=== PATIENT | male | born 1935 | race Caucasian/White ===

== ENCOUNTER 2016-07-23 17:13 | Inpatient (IN) | payer MEDICARE ==
[2016-07-23] MEDS ORDERED: NITROGLYCERIN OINT 1 INCH/GM PACKET TOPICAL STA (17:46)
[2016-07-23] MEDS ORDERED: ASPIRIN 81 MG CHEW PO STA (17:46)
--- NOTE | 2016-07-23 17:51 | ED ---
General Adult HPI - General Chief complaint: Chest Pain Stated complaint: Chest Pain Time Seen by Provider: 07/23/16 17:34 Source: patient, RN notes reviewed Mode of arrival: wheelchair Limitations: no limitations - History of Present Illness Initial comments: Patient is a pleasant 80-year-old male presenting to the emergency department complaining of chest discomfort. Onset of symptoms was a couple weeks ago. Patient had discomfort for a day or 2 then resolved. Patient had return of symptoms around 2 days ago that lasted again for a day or 2 then resolved. Patient states chest discomfort started again today. Patient states it is difficult to describe the discomfort. There is some associated dyspnea. No nausea or diaphoresis. No history of similar symptoms previously. Discomfort is mild at this time, lids 2/10. Discomfort is in the sternal region. - Related Data Home Medications Medication Instructions Recorded Confirmed Aspirin 81 mg PO QAM 07/16/14 07/23/16 Gemfibrozil [Lopid] 600 mg PO AC-BID 07/16/14 07/23/16 Lisinopril [Zestril] 5 mg PO HS 07/16/14 07/23/16 Terazosin [Hytrin] 5 mg PO HS 07/16/14 07/23/16 metFORMIN HCL [Glucophage] 500 mg PO BID 07/16/14 07/23/16 Exenatide Microspheres [Bydureon 2 mg SQ VIERA 05/20/16 07/23/16 Pen] Cranberry W/ Vitamin D3 1 tab PO DAILY 07/23/16 07/23/16 Metoprolol Succinate (ER) [Toprol 50 mg PO QAM 07/23/16 07/23/16 Xl] Multivit-Min/FA/Lycopen/Lutein 1 tab PO QAM 07/23/16 07/23/16 [Centrum Silver Men Tablet] Allergies Allergy/AdvReac Type Severity Reaction Status Date / Time No Known Allergies Allergy Verified 07/23/16 17:58 Review of Systems ROS Statement: Those systems with pertinent positive or pertinent negative responses have been documented in the HPI. ROS Other: All systems not noted in ROS Statement are negative. Constitutional: Denies: fever Eyes: Denies: eye pain ENT: Denies: ear pain Respiratory: Denies: cough Cardiovascular: Reports: chest pain Endocrine: Denies: fatigue Gastrointestinal: Denies: abdominal pain Genitourinary: Denies: urgency Musculoskeletal: Denies: back pain Skin: Denies: rash Neurological: Denies: weakness Past Medical History Past Medical History: CVA/TIA, Diabetes Mellitus, Hyperlipidemia, Hypertension, Osteoarthritis (OA), Prostate Disorder Additional Past Medical History / Comment(s): gout, arthritis, ENLARGED PROSTATE , TIA 2009,SINUS PROBLEMS, NEUROPATHY AND LT FOOT WEAKNESS /wears brace.bilat. foot wounds History of Any Multi-Drug Resistant Organisms: None Reported Past Surgical History: Joint Replacement Additional Past Surgical History / Comment(s): colonoscopy, x2 knee replacements on rt knee Past Anesthesia/Blood Transfusion Reactions: No Reported Reaction Past Psychological History: No Psychological Hx Reported Additional Psychological History / Comment(s): lives alone in own home. is independant with his care.gets no outside help. Smoking Status: Former smoker Past Alcohol Use History: None Reported Additional Past Alcohol Use History / Comment(s): SMOKED 1 PPD PER 4 YEARS, QUIT IN 1958 Past Drug Use History: None Reported - Past Family History Father Family Medical History: Cancer Additional Family Medical History / Comment(s): LUNG CANCER Mother Family Medical History: Hypertension, Osteoarthritis (OA) General Exam Limitations: no limitations General appearance: alert, in no apparent distress, obese Head exam: Present: atraumatic Eye exam: Present: normal appearance, PERRL ENT exam: Present: normal oropharynx Neck exam: Present: normal inspection Respiratory exam: Present: normal lung sounds bilaterally. Absent: chest wall tenderness Cardiovascular Exam: Present: regular rate, normal rhythm GI/Abdominal exam: Present: soft. Absent: tenderness Extremities exam: Present: pedal edema. Absent: calf tenderness Neurological exam: Present: alert Psychiatric exam: Present: normal affect, normal mood Skin exam: Present: dry Course Vital Signs 07/23/16 07/23/16 17:18 18:34 Temperature 99.5 F 98.0 F Pulse Rate 91 88 Respiratory 20 16 Rate Blood Pressure 132/61 119/58 O2 Sat by Pulse 95 97 Oximetry EKG Findings - EKG Comments: EKG Findings:: Sinus rhythm at 94. Occasional PVCs. MT 192. QRS 88. QT 360. QTC 460. Normal axis. Normal QRS. Normal ST-T. Medical Decision Making - Medical Decision Making Patient reevaluated and resting comfortably in bed. Patient and family updated on results and plan. Case was discussed in detail with Dr. precrash, who will admit for Dr. Cerrato. - Lab Data Result diagrams: 07/23/16 17:37 07/23/16 17:37 Lab Results 07/23/16 07/23/16 07/23/16 Range/Units 17:37 17:37 17:37 WBC 13.8 H (3.8-10.6) k/uL RBC 4.36 (4.30-5.90) m/uL Hgb 12.9 L (13.0-17.5) gm/dL Hct 38.4 L (39.0-53.0) % MCV 88.0 (80.0-100.0) fL MCH 29.6 (25.0-35.0) pg MCHC 33.7 (31.0-37.0) g/dL RDW 15.2 (11.5-15.5) % Plt Count 329 (150-450) k/uL Neutrophils % 77 % Lymphocytes % 14 % Monocytes % 5 % Eosinophils % 1 % Basophils % 1 % Neutrophils # 10.7 H (1.3-7.7) k/uL Lymphocytes # 1.9 (1.0-4.8) k/uL Monocytes # 0.7 (0-1.0) k/uL Eosinophils # 0.2 (0-0.7) k/uL Basophils # 0.1 (0-0.2) k/uL PT (9.0-12.0) sec INR (<1.1) APTT (22.0-30.0) sec Sodium 140 (137-145) mmol/L Potassium 4.8 (3.5-5.1) mmol/L Chloride 105 (98-107) mmol/L Carbon Dioxide 22 (22-30) mmol/L Anion Gap 13 mmol/L BUN 33 H (9-20) mg/dL Creatinine 0.89 (0.66-1.25) mg/dL Est GFR (MDRD) Af Amer >60 (>60 ml/min/1.73 sqM) Est GFR (MDRD) Non-Af >60 (>60 ml/min/1.73 sqM) Glucose 117 H (74-99) mg/dL Calcium 9.7 (8.4-10.2) mg/dL Magnesium 1.7 (1.6-2.3) mg/dL Total Bilirubin 1.3 (0.2-1.3) mg/dL AST 13 L (17-59) U/L ALT 21 (21-72) U/L Alkaline Phosphatase 89 (38-126) U/L Total Creatine Kinase 37 L (55-170) U/L CK-MB (CK-2) 0.7 (0.0-2.4) ng/mL CK-MB (CK-2) Rel Index 1.9 Troponin I <0.012 (0.000-0.034) ng/mL Total Protein 7.2 (6.3-8.2) g/dL Albumin 4.2 (3.5-5.0) g/dL 07/23/16 Range/Units 17:37 WBC (3.8-10.6) k/uL RBC (4.30-5.90) m/uL Hgb (13.0-17.5) gm/dL Hct (39.0-53.0) % MCV (80.0-100.0) fL MCH (25.0-35.0) pg MCHC (31.0-37.0) g/dL RDW (11.5-15.5) % Plt Count (150-450) k/uL Neutrophils % % Lymphocytes % % Monocytes % % Eosinophils % % Basophils % % Neutrophils # (1.3-7.7) k/uL Lymphocytes # (1.0-4.8) k/uL Monocytes # (0-1.0) k/uL Eosinophils # (0-0.7) k/uL Basophils # (0-0.2) k/uL PT 10.7 (9.0-12.0) sec INR 1.1 (<1.1) APTT 26.5 (22.0-30.0) sec Sodium (137-145) mmol/L Potassium (3.5-5.1) mmol/L Chloride (98-107) mmol/L Carbon Dioxide (22-30) mmol/L Anion Gap mmol/L BUN (9-20) mg/dL Creatinine (0.66-1.25) mg/dL Est GFR (MDRD) Af Amer (>60 ml/min/1.73 sqM) Est GFR (MDRD) Non-Af (>60 ml/min/1.73 sqM) Glucose (74-99) mg/dL Calcium (8.4-10.2) mg/dL Magnesium (1.6-2.3) mg/dL Total Bilirubin (0.2-1.3) mg/dL AST (17-59) U/L ALT (21-72) U/L Alkaline Phosphatase (38-126) U/L Total Creatine Kinase (55-170) U/L CK-MB (CK-2) (0.0-2.4) ng/mL CK-MB (CK-2) Rel Index Troponin I (0.000-0.034) ng/mL Total Protein (6.3-8.2) g/dL Albumin (3.5-5.0) g/dL - Radiology Data Radiology results: image reviewed (Chest x-ray shows cardiomegaly) Critical Care Time Critical Care Time: Yes Total Critical Care Time: 31 Disposition Clinical Impression: Unstable angina pectoris Disposition: ADMITTED IP TO THIS HOSP Referrals: Denis Cerrato MD [Primary Care Provider] - 1-2 days Time of Disposition: 18:51
[2016-07-23 18:05] LABS: Basophils # (A) 0.1 k/uL (0-0.2); Basophils % (A) 1 %; CH 30.2; CHCM 34.5; Eosinophils # (A) 0.2 k/uL (0-0.7); Eosinophils % (A) 1 %; HCT 38.4 % (39.0-53.0); HDW 3.39; HGB 12.9 gm/dL (13.0-17.5); Luc # (Auto) 0.26; Luc % (Auto) 2; Lymphocytes # (A) 1.9 k/uL (1.0-4.8); Lymphocytes % (A) 14 %; MCH 29.6 pg (25.0-35.0); MCHC 33.7 g/dL (31.0-37.0); Mean Platelet Volume 7.1; Monocytes # (A) 0.7 k/uL (0-1.0); Monocytes % (A) 5 %; Neutrophils # (A) 10.7 k/uL (1.3-7.7); Neutrophils % (A) 77 %; RBC 4.36 m/uL (4.30-5.90); RDW 15.2 % (11.5-15.5); WBC 13.8 k/uL (3.8-10.6); WBC (Perox) 12.89
--- NOTE | 2016-07-23 18:13 | XR ---
EXAMINATION TYPE: XR chest 2V DATE OF EXAM: 07/23/2016 COMPARISON: 12/14/2014 HISTORY: Chest pain TECHNIQUE: Frontal and lateral views of the chest are obtained. FINDINGS: There is no heart failure nor confluent pneumonic infiltrate. Heart appears enlarged. Ther e are no hilar masses. There is no pleural effusion. There are chest leads. Bony thorax appears intac t. IMPRESSION: Cardiomegaly. Heart appears increased compared to old exam. No heart failure.
[2016-07-23 18:14] LABS: ALT 21 U/L (21-72); AST 13 U/L (17-59); Alkaline Phosphatase 89 U/L (38-126); Anion Gap 13 mmol/L; Blood Urea Nitrogen 33 mg/dL (9-20); Calcium 9.7 mg/dL (8.4-10.2); Carbon Dioxide 22 mmol/L (22-30); Chloride 105 mmol/L (98-107); Glucose 117 mg/dL (74-99); INR 1.1 (<1.1); Magnesium 1.7 mg/dL (1.6-2.3); Non-African American GFR(MDRD) >60 (>60 ml/min/1.73 sqM); Partial Thromboplastin Time 26.5 sec (22.0-30.0); Potassium 4.8 mmol/L (3.5-5.1); Prothrombin Time 10.7 sec (9.0-12.0); Sodium 140 mmol/L (137-145); Total Bilirubin 1.3 mg/dL (0.2-1.3); Total Protein 7.2 g/dL (6.3-8.2)
[2016-07-23 18:31] LABS: Creatine Kinase 37 U/L (55-170)
[2016-07-23 18:44] LABS: Creatine Kinase MB 0.7 ng/mL (0.0-2.4); Troponin I <0.012 ng/mL (0.000-0.034)
[2016-07-23] MEDS ORDERED: NITROGLYCERIN SL TABS 0.4 MG TAB SUBLINGUAL PRN (18:51)
[2016-07-23] MEDS ORDERED: HEPARIN SODIUM,PORCINE 5,000 UNIT/ML 1 ML VIAL IV ONE (18:51)
[2016-07-23] MEDS ORDERED: HEPARIN SODIUM,PORCINE 5,000 UNIT/ML 1 ML VIAL IV PRN (18:51)
[2016-07-23] MEDS ORDERED: Acetaminophen-Codeine 300-30mg TAB PO STA (18:53)
[2016-07-23] MEDS ORDERED: HEPARIN SODIUM,PORCINE/D5W PMX 25,000 UNIT in DEXTROSE/WATER 1 500ML.BAG IV SCH (19:00)
[2016-07-23 20:16] VITALS: BMI 39.0
[2016-07-23 21:37] LABS: Glucose,Whole Blood 160 mg/dL (75-99)
[2016-07-23] MEDS: LISINOPRIL 5 MG TAB PO SCH (23:26)
[2016-07-23] MEDS: TERAZOSIN 5 MG CAP PO SCH (23:26)
[2016-07-24 00:14] LABS: Appearance,Urine Turbid (Clear); Bilirubin,Urine Negative (Negative); Glucose,Urine (UA) Negative (Negative); Ketones,Urine Negative (Negative); Leukocyte Esterase,Urine Large (Negative); Mucus,Urine Moderate /hpf; Nitrite,Urine Negative (Negative); PH, Urine 5.5 (5.0-8.0); Particle Count 50070; Protein,Urine 2+ (Negative); RBC,Urine >182 /hpf (0-5); Specific Gravity,Urine 1.023 (1.001-1.035); Squamous Epithelial Cell,Urine 8 /hpf (0-4); UA Billing (MACRO vs. MICRO) MICRO; WBC,Urine >182 /hpf (0-5)
[2016-07-24] MEDS: NITROGLYCERIN OINT 1 INCH/GM PACKET TOPICAL SCH ×4 (00:35→19:11)
[2016-07-24 00:36] LABS: Basophils # (A) 0.1 k/uL (0-0.2); Basophils % (A) 1 %; CHCM 34.4; Eosinophils # (A) 0.1 k/uL (0-0.7); Eosinophils % (A) 1 %; HCT 36.3 % (39.0-53.0); HGB 12.3 gm/dL (13.0-17.5); Luc # (Auto) 0.28; Luc % (Auto) 2; Lymphocytes # (A) 1.6 k/uL (1.0-4.8); Lymphocytes % (A) 13 %; MCH 29.9 pg (25.0-35.0); MCV 87.8 fL (80.0-100.0); Mean Platelet Volume 6.7; Monocytes # (A) 0.8 k/uL (0-1.0); Monocytes % (A) 7 %; Neutrophils # (A) 9.2 k/uL (1.3-7.7); Neutrophils % (A) 76 %; Poikilocytosis Slight; RBC 4.13 m/uL (4.30-5.90); WBC 12.1 k/uL (3.8-10.6); WBC (Perox) 13.03
[2016-07-24 01:00] LABS: Creatine Kinase 26 U/L (55-170)
[2016-07-24 01:13] LABS: Creatine Kinase MB 0.7 ng/mL (0.0-2.4); Troponin I <0.012 ng/mL (0.000-0.034)
[2016-07-24 07:21] LABS: Glucose,Whole Blood 140 mg/dL (75-99)
[2016-07-24 07:34] LABS: Mean Platelet Volume 6.7
[2016-07-24 07:44] LABS: Cholesterol 83 mg/dL (<200); HDL Cholesterol 37 mg/dL (40-60); Triglycerides 142 mg/dL (<150)
[2016-07-24 07:48] LABS: Creatine Kinase 24 U/L (55-170)
[2016-07-24 08:01] LABS: Creatine Kinase MB 0.6 ng/mL (0.0-2.4); Troponin I <0.012 ng/mL (0.000-0.034)
[2016-07-24] MEDS ORDERED: ALPRAZolam 0.25 MG TAB PO PRN (08:26)
[2016-07-24] MEDS ORDERED: NITROGLYCERIN SL TABS 0.4 MG TAB SUBLINGUAL PRN ×2 (08:26→18:33)
[2016-07-24] MEDS ORDERED: ASPIRIN 325 MG TAB PO STA (08:26)
[2016-07-24] MEDS ORDERED: ATORVASTATIN 80 MG TAB PO STA (08:26)
[2016-07-24] MEDS ORDERED: SODIUM CHLORIDE 0.9% 1,000 ML in EMPTY BAG 1 BAG IV ONE (08:26)
[2016-07-24] MEDS ORDERED: ALPRAZolam 0.5 MG TAB PO PRN (08:26)
[2016-07-24] MEDS: METOPROLOL SUCCINATE (ER) 50 MG TAB.ER.24H PO SCH (08:45)
[2016-07-24] MEDS: GEMFIBROZIL 600 MG TAB PO SCH ×2 (08:45→19:10)
[2016-07-24] MEDS ORDERED: ASPIRIN 81 MG CHEW PO SCH (09:00)
[2016-07-24] MEDS ORDERED: metFORMIN 500 MG TAB PO SCH (09:00)
[2016-07-24] MEDS ORDERED: ASPIRIN 325 MG TAB PO SCH (09:00)
[2016-07-24] MEDS ORDERED: MIDAZOLAM 2 MG/2 ML VIAL ONE (09:10)
[2016-07-24] MEDS ORDERED: LIDOCAINE 2% INJ 20 MG/ML (20 ML MDV) ONE ×2 (09:10→17:10)
[2016-07-24] MEDS ORDERED: diphenhydrAMINE 50 MG/ML 1 ML VIAL ONE (09:10)
[2016-07-24] MEDS ORDERED: IV FLUID CONTINUATION 1,000 ML IV ONE (09:36)
[2016-07-24] MEDS: fentaNYL (PF) 50 MCG/ML 2 ML AMP IV ONE ×2 (09:42→10:20)
[2016-07-24] MEDS ORDERED: fentaNYL (PF) 50 MCG/ML 2 ML AMP ONE (09:42)
[2016-07-24] MEDS ORDERED: MIDAZOLAM 2 MG/2 ML VIAL IV ONE (09:42)
[2016-07-24] MEDS ORDERED: LIDOCAINE 2% INJ 20 MG/ML SQ ONE ×2 (09:45→17:59)
--- NOTE | 2016-07-24 09:48 | CONS ---
DATE OF CONSULTATION: CHIEF COMPLAINT: Chest pain. Ramesh is a 80-year-old gentleman with multiple coronary risk factors including hypertension, diabetes, dyslipidemia who presented to hospital complaining of chest pain. He describes it as intermittent episodes of Precordial chest pressure that sometimes come on at rest and sometimes related to exertion. There is no definite radiation to neck, arm or back. They are unassociated with diaphoresis. He is admitted to hospital with a diagnosis of unstable angina and since admission, has been doing well. EKG shows sinus rhythm with frequent PVCs and nonspecific ST-T wave changes. Cardiac enzymes have been negative. Hemoglobin is 12.3 and platelet count is normal. Past medical history is significant for hypertension, diabetes, dyslipidemia. Current medications include Hytrin, aspirin, Glucophage 500 b.i.d., Toprol-XL 50 mg q. daily, Zestril 5 q. daily, Lopid. ALLERGIES: There are no known drug allergies. Family history is negative for premature coronary artery disease. Social history is negative for smoking, EtOH use or drug abuse. REVIEW OF SYSTEMS: HEENT is unremarkable. CARDIAC: As described above. RESPIRATORY: Negative. GI: Negative. GENITOURINARY: Negative. ALLERGY/IMMUNOLOGY: Negative. MUSCULOSKELETAL: Significant for arthritis. PSYCHOSOCIAL: Negative. ENDOCRINE: Negative. DERMATOLOGY: Negative. CONSTITUTIONAL: Negative. ONCOLOGICAL: Negative. The rest of the system review is not relevant. On exam, comfortable at rest. Vital signs are stable. There is no jugular venous distention. Chest exam reveals good air entry bilaterally. Heart exam reveals first and second heart sounds. No gallop. No murmur, no rub. Abdomen is soft, nontender. Exam of the extremities did not reveal edema. Peripheral pulses are felt. Labs show a hemoglobin of 12.3, platelet count is normal. Tropes are negative. ASSESSMENT: Unstable angina. PLAN: Given the patient's symptomatology, risk factors, I advised him to undergo cardiac catheterization for further evaluation. He had been explained of risks, benefits, and alternatives, understood and accepted.
[2016-07-24] MEDS ORDERED: PRASUGREL 10 MG TAB ONE (10:13)
[2016-07-24] MEDS ORDERED: PRASUGREL 10 MG TAB PO ONE (10:15)
[2016-07-24] MEDS ORDERED: IOHEXOL 350 MG/ML 125ML BOTTLE INJ ONE ×2 (10:16→18:24)
--- NOTE | 2016-07-24 12:11 | ECHOF ---
Referral Reason:chest pain MEASUREMENTS -------- HEIGHT: 180.3 cm WEIGHT: 126.6 kg BP: 105/55 RVIDd: 3.6 cm (< 3.3) IVSd: 1.3 cm (0.6 - 1.1) LVIDd: 5.2 cm (3.9 - 5.3) LVPWd: 1.4 cm (0.6 - 1.1) IVSs: 1.5 cm LVIDs: 3.6 cm LVPWs: 1.8 cm LA Diam: 3.9 cm (2.7 - 3.8) LAESV Index (A-L): 31.46 ml/m Ao Diam: 3.5 cm (2.0 - 3.7) AV Cusp: 1.9 cm (1.5 - 2.6) MV EXCURSION: 16.399 mm (> 18.000) MV EF SLOPE: 30 mm/s (70 - 150) EPSS: 0.9 cm MV E Robert: 0.65 m/s MV DecT: 238 ms MV A Robert: 1.01 m/s MV E/A Ratio: 0.65 AV maxP.01 mmHg AV meanP.34 mmHg FINDINGS -------- Sinus rhythm. This was a technically difficult study with suboptimal views. The left ventricular size is normal. There is moderate concentric left ventricular hypertrophy. Overall left ventricular systolic function is normal with, an EF between 55 - 60 %. The right ventricle is mildly enlarged. LA is midly dilated 29-33ml/m2. The right atrium is normal in size. 1.5mg of Definity was utilized for enhancement of images There is moderate to severe aortic valve sclerosis. There is moderate aortic stenosis present. Peak/mean gradient across the Aortic Valve is 55.01mmHg / 32.34mmHg. Mild mitral annular calcification present. The tricuspid valve was not well visualized. The pulmonic valve was not well visualized. The aortic root size is normal. IVC Not well visulized. There is a trivial pericardial effusion present. CONCLUSIONS -------- 1. Sinus rhythm. 2. There is moderate to severe aortic valve sclerosis. 3. There is moderate aortic stenosis present. 4. Peak/mean gradient across the Aortic Valve is 55.01mmHg / 32.34mmHg. 5. Mild mitral annular calcification present. 6. The tricuspid valve was not well visualized. 7. The pulmonic valve was not well visualized. 8. The aortic root size is normal. 9. IVC Not well visulized. 10. There is a trivial pericardial effusion present. 11. This was a technically difficult study with suboptimal views. 12. The left ventricular size is normal. 13. There is moderate concentric left ventricular hypertrophy. 14. Overall left ventricular systolic function is normal with, an EF between 55 - 60 %. 15. The right ventricle is mildly enlarged. 16. LA is midly dilated 29-33ml/m2. 17. The right atrium is normal in size. 18. 1.5mg of Definity was utilized for enhancement of images SYSTEM SOFTWARE PROGRAMMER: Patsy Long RDCS
--- NOTE | 2016-07-24 12:28 | HP ---
DATE OF ADMISSION: 07/23/2016 PRESENTING COMPLAINT: Chest pressure. HISTORY OF PRESENTING COMPLAINT: This is a very pleasant 80-year-old patient of Dr. Cerrato. Chronic stable medical conditions include hypertension, hyperlipidemia, BPH, gout, diabetes, chronic low back pain, also got a chronic left foot drop. Patient is hard of hearing. Patient presented with chest pain on and off for 3 to 4 hours associated with some shortness of breath central, no dizziness, no sweating. Patient also noted 2 episodes in the last 2 weeks both the times with some activity. Hence, the patient admitted with unstable angina. REVIEW OF SYSTEMS: CONSTITUTIONAL: None. HEENT: Decreased hearing. RESPIRATORY: As above. CARDIOVASCULAR: As above. GASTROINTESTINAL: None. GENITOURINARY: None. MUSCULOSKELETAL: Aches and pains in the joints including lower back pain. DERMATOLOGICAL: None. HEMATOLOGICAL: None. LYMPHATIC: None. PSYCHIATRY: None. NEUROLOGICAL: None. Past history of hypertension, hyperlipidemia, BPH, back pain, gout, diabetes left foot drop, peripheral neuropathy. PAST SURGICAL HISTORY: Cholecystectomy, joint replacement, 2 knee replacements of the right knee. SOCIAL HISTORY: Lives by himself. Uses a motorized wheelchair to get about. No smoking. No alcohol. FAMILY HISTORY: Lung cancer. HOME MEDICATIONS: 1. Cranberry with Vitamin D3 one tablet p.o. daily. 2. Centrum Silver Men 1 tablet p.o. daily. 3. Hytrin 5 mg q.h.s. 4. Aspirin 81 mg p.o. daily. 5. Glucophage 500 mg p.o. b.i.d. 6. Toprol XL 50 mg p.o. daily. 7. Zestril 5 mg p.o. q.h.s. 8. Lopid 600 mg b.i.d. 9. Bydureon 2 mg subcu on Wednesday. ALLERGIES: None. On examination, temperature 98.3, pulse 94, respirations 18, blood pressure 107/59, pulse ox 98% on room air. GENERAL APPEARANCE: Well built, BMI 39. Lying in bed, not in distress. EYES: Pupils equal. Conjunctivae normal. HEENT: External appearance of nose and ears normal. Oral cavity normal. NECK: JVD not raised. Mass not palpable. RESPIRATORY: Effort normal. LUNGS: Diminished breath sounds. CARDIOVASCULAR: Heart sounds muffled. No edema. ABDOMEN: Soft, nontender. Liver and spleen not palpable. LYMPHATIC: No lymph nodes palpable in the neck or axillae. PSYCHIATRY: Alert and oriented x3. Mood and affect normal. NEUROLOGICAL: Pupils equal. Cranial nerves grossly intact. Power and sensation grossly intact. INVESTIGATIONS: White count 13.8, hemoglobin 12.9. Potassium 4.8. BUN 33, creatinine 0.89. Troponin less than 0.012. EKG normal sinus rhythm with PVCs. ASSESSMENT: 1. Possible unstable angina. Patient with known cardiac risk factors including hyperlipidemia, hypertension, obesity, diabetes with cardiac enzymes being negative. 2. Essential hypertension. 3. Hyperlipidemia. 4. Benign prostatic hypertrophy. 5. Chronic low back pain from arthritis. 6. Diabetes mellitus, type 2. 7. Chronic left foot drop. 8. Peripheral neuropathy. PLAN: Serial cardiac enzymes are in place. Patient started on IV heparin and Nitro paste. Cardiology was consulted. Home medications will be resumed. Care was discussed with the patient .
[2016-07-24] MEDS ORDERED: HYDROmorphone 1 MG/ML 1 ML SYRINGE IVP PRN (13:40)
[2016-07-24] MEDS: HYDROmorphone 1 MG/ML 1 ML SYRINGE IVP PRN ×3 (14:01→20:46)
[2016-07-24] MEDS ORDERED: IV FLUID CONTINUATION 925 ML IV ONE (17:40)
[2016-07-24] MEDS ORDERED: HYDROmorphone 2 MG/ML 1 ML SYRINGE ONE (17:59)
[2016-07-24] MEDS ORDERED: HYDROmorphone 2 MG/ML 1 ML SYRINGE IV ONE (18:01)
[2016-07-24] MEDS ORDERED: BIVALIRUDIN BOLUS 250 MG/50 ML IV ONE (18:03)
[2016-07-24] MEDS ORDERED: BIVALIRUDIN 250 MG in SODIUM CHLORIDE 0.9% 50 ML IV ONE (18:06)
[2016-07-24] MEDS ORDERED: NITROGLYCERIN 1000MCG/10ML SYRINGE INTRACORON ONE (18:09)
[2016-07-24] MEDS ORDERED: MAG HYDROX/AL HYDROX/SIMETH 30 ML CUP PO PRN (18:33)
[2016-07-24] MEDS ORDERED: ATROPINE SULFATE 0.1 MG/ML 10ML SYRINGE IV PRN (18:33)
[2016-07-24] MEDS ORDERED: RX INFO: IV CONTRAST WAS GIVEN 1 EACH MISC MISCELLANE PRN (18:33)
[2016-07-24] MEDS ORDERED: SODIUM CHLORIDE 0.9% 1,000 ML IV SCH (18:45)
[2016-07-24] MEDS ORDERED: ZOLPIDEM 5 MG TAB PO PRN (21:00)
[2016-07-24 21:08] LABS: Glucose,Whole Blood 154 mg/dL (75-99)
[2016-07-24] MEDS: LISINOPRIL 5 MG TAB PO SCH (21:25)
[2016-07-24] MEDS: INSULIN LISPRO (humaLOG) 300 UNIT/3 ML VIAL SQ SCH (21:25)
[2016-07-24] MEDS: TERAZOSIN 5 MG CAP PO SCH (21:25)
--- NOTE | 2016-07-24 22:29 | PN ---
DATE OF SERVICE: 07/23/2016 PRESENTING COMPLAINT: Chest pain. INTERVAL HISTORY: This patient with multiple problems presented with unstable angina. The patient underwent a cardiac cath today, found to have a lesion, I do not have the formal report. Awaiting interventional by Dr. Donnelly. Lying in bed, multiple family members at the bedside. No further episode of chest pain. Review of systems done for constitutional, cardiovascular pulmonary and gastrointestinal relevant findings as above. Current medications are reviewed including IV ( ) for UTI. On examination, temperature 98.7, pulse 87, respiratory rate 20, blood pressure 160/60, pulse ox 98% on 2 liters. GENERAL APPEARANCE: Lying in bed, not in distress. EYES: Pupils equal. Conjunctivae normal. NECK: JVD not raised. Mass not palpable. RESPIRATORY: Effort normal. LUNGS: Decreased breath sounds. CARDIOVASCULAR: Heart sounds muffled edema. ABDOMEN: Soft. Nontender. Liver and spleen not palpable. Pressure of the right groin. PSYCHIATRY: Alert and oriented times three, mood and affect normal. INVESTIGATIONS: White count 12.1, hemoglobin 12.3. UA possible leukocyte esterase, WBC. ASSESSMENT: 1. Coronary artery disease, obstructive lesion, I do not have the formal report pending intervention by weight and balance control agent. Patient seen earlier by Dr. Maura Hendricks from cardiology, did cardiac cath. 2. Essential hypertension. 3. Hyperlipidemia. 4. Benign prostatic hypertrophy. 5. Low back pain from arthritis. 6. Diabetes mellitus, type II. 7. Chronic left foot drop. 8. Peripheral neuropathy from diabetes mellitus, type II. PLAN: Continue current medication and treatment plan. Await intervention. Care was discussed with the patient's family at the bedside. Follow.
[2016-07-25] MEDS: HYDROmorphone 1 MG/ML 1 ML SYRINGE IVP PRN ×4 (01:35→23:20)
[2016-07-25 06:09] LABS: Glucose,Whole Blood 153 mg/dL (75-99)
[2016-07-25 06:23] LABS: Mean Platelet Volume 6.6
[2016-07-25 06:32] LABS: Anion Gap 10 mmol/L; Blood Urea Nitrogen 38 mg/dL (9-20); Calcium 8.7 mg/dL (8.4-10.2); Carbon Dioxide 19 mmol/L (22-30); Chloride 108 mmol/L (98-107); Glucose 130 mg/dL (74-99); Non-African American GFR(MDRD) >60 (>60 ml/min/1.73 sqM); Potassium 4.6 mmol/L (3.5-5.1); Sodium 137 mmol/L (137-145)
[2016-07-25] MEDS: INSULIN LISPRO (humaLOG) 300 UNIT/3 ML VIAL SQ SCH ×5 (08:56→21:32)
[2016-07-25] MEDS: ASPIRIN 81 MG CHEW PO SCH (08:57)
[2016-07-25] MEDS: ATORVASTATIN 40 MG TAB PO SCH (08:57)
[2016-07-25] MEDS: PRASUGREL 10 MG TAB PO SCH (08:57)
[2016-07-25] MEDS: METOPROLOL SUCCINATE (ER) 50 MG TAB.ER.24H PO SCH (08:57)
--- NOTE | 2016-07-25 11:18 | PTCA ---
DATE OF SERVICE: Mr. Galicia is a 80-year-old male with a history of diabetes mellitus who presented with symptoms of angina pectoris, underwent cardiac catheterization by Dr. Hendricks and was found to have critical stenosis involving the mid calcified right coronary artery. In view of that, recommendation was made regarding angioplasty and stenting. The procedure as well as risks and complications were discussed with the patient, who was in full understanding and agreement. PROCEDURE: Patient was brought to the laboratory administrative director in a fasting, semi-sedated state after receiving fentanyl and Benadryl and achieving moderate conscious sedated state. Using Xylocaine anesthesia and the guidewire exchange technique, the 6 [place] sheath in the right femoral artery was exchanged for a new 6 [place] sheath. Following that, a 6 [place] FR4 guiding catheter was introduced into the system. After cannulating the right coronary ostium, a 0.014 balanced medium-weight J-wire was advanced across the lesion, positioned distally. Then a 2.75 x 12 mm Trek balloon was advanced. One inflation at 10 atmospheres was done. Following that, the balloon was removed and a 3.5 x 15 mm Xience Alpine stent was deployed, post dilated at 16 atmospheres. After removing the balloon, a 4.0 x 12 mm NC Trek balloon was advanced. One inflation at 12 atmospheres was done. After the last inflation, after appropriate wait, the balloon and the guidewire were withdrawn back into the guiding catheter. Images were obtained and repeated. Those images revealed stable successful stenting. At that point the guiding catheter, the balloon and the guidewire were removed. The sheath was removed. Hemostasis was obtained with deployment of an AngioSeal. There was no medical complication. The patient was returned to his room in stable condition. Of note, patient received Angiomax per protocol and an oral loading dose of Effient. He had no significant chest pain or EKG changes with inflations. RESULT: Successful stenting of the mid right coronary artery with reduction in stenosis from 90% to less than 5%. RECOMMENDATION: Patient will be continued on aspirin, Effient, beta robin, GERMÁN inhibitor and statin. The importance of dual antiplatelet treatment was discussed with the patient and his family, who are in full understanding and agreement. Duration of the procedure was 26 minutes.
--- NOTE | 2016-07-25 11:20 | LTR ---
July 24, 2016 RE: GraysonAlvarezmonica Svetlana Dear Dr. Cerrato, I had the pleasuring of performing coronary angioplasty and stenting on Mr. Galicia at [facility] on July 24, and a full copy of the procedure note will be forwarded to you. In brief, he underwent successful stenting of his mid right coronary artery using a drug-eluting stent. I am hopeful that this procedure will stabilize his status. Thank you again for allowing me to participate in his care. Please feel free to call with any questions. Sincerely, SHARA CONN MD
[2016-07-25 11:42] LABS: Hemoglobin A1C 5.6 % (4.2-6.1)
[2016-07-25 11:45] LABS: Glucose,Whole Blood 133 mg/dL (75-99)
--- NOTE | 2016-07-25 12:22 | P.PN ---
Subjective Principal diagnosis: RCA stent This is a 80-year-old gentleman with history of hypertension, diabetes , hyperlipidemia, who presented to the hospital with an episode of chest pain. He was taken to the cardiac catheterization lab by Dr. Hendricks and subsequently underwent angioplasty with stenting of the right coronary artery by Dr. Donnelly. Patient was seen and examined this morning, denies any chest pain or difficulty in breathing. EKG shows normal sinus rhythm with no changes from post-PCI. Blood pressure 106/60 with a heart rate in the 90s. BUN 38, creatinine 1.0 Objective - Vital Signs Vital signs: Vital Signs Temp 97.4 F L 07/25/16 08:40 Pulse 90 07/25/16 08:40 Resp 16 07/25/16 09:19 BP 106/57 07/25/16 08:40 Pulse Ox 94 L 07/25/16 08:40 Intake & Output 07/24/16 07/25/16 07/25/16 18:59 06:59 18:59 Intake Total 1532.9 800 Output Total 2300 0 Balance 1532.9 -1500 0 Weight 124 kg Intake: IV 982.9 Sodium Chloride 0.9% 1, 575 000 ml In Empty Bag 1 bag @ 1 ML/KG/HR 127 mls/hr IV .[id number] ONE Rx#: [id number] Intake, IV Titration 550 800 Amount IV Fluid Continuation 1, 500 000 ml As IV .STK-MED ONE Rx#:[id number] Sodium Chloride 0.9% 1, 800 000 ml @ 100 mls/hr IV . Q10H [facility] Rx#:[id number] cefTRIAXone 1,000 mg In 50 Sodium Chloride 0.9% 50 ml @ 100 mls/hr IVPB Q24H [facility] Rx#:[id number] Output: Urine 2300 0 Uretheral (Dasilva) 950 Other: Voiding Method Urinal Indwelling Catheter Incontinent # Voids 0 # Bowel Movements 1 - Exam PHYSICAL EXAMINATION: HEENT: Head is atraumatic, normocephalic. Pupils equal, round. Neck is supple. There is no elevated jugular venous pressure. HEART EXAMINATION: Heart S1, S2 normal. No murmur or gallop heard. CHEST EXAMINATION: Lungs are clear to auscultation and precussion. No chest wall tenderness is noted on palpation or with deep breathing. ABDOMEN: Soft, nontender. Bowel sounds are heard. No organomegaly noted. Right groin soft, no evidence of any hematoma. EXTREMITIES: 2+ peripheral pulses with no evidence of peripheral edema and no calf tenderness noted. NEUROLOGIC patient is awake, alert and oriented -3. . - Labs CBC & Chem 7: 07/25/16 05:41 07/25/16 05:47 Labs: Abnormal Lab Results - Last 24 Hours (Table) 07/24/16 07/25/16 07/25/16 Range/Units 21:06 05:47 06:08 Chloride 108 H (98-107) mmol/L Carbon Dioxide 19 L (22-30) mmol/L BUN 38 H (9-20) mg/dL Glucose 130 H (74-99) mg/dL POC Glucose (mg/dL) 154 H 153 H (75-99) mg/dL 07/25/16 Range/Units 11:43 Chloride (98-107) mmol/L Carbon Dioxide (22-30) mmol/L BUN (9-20) mg/dL Glucose (74-99) mg/dL POC Glucose (mg/dL) 133 H (75-99) mg/dL Assessment and Plan (1) HTN (hypertension) Status: Acute (2) Hyperlipemia Status: Acute (3) S/P right coronary artery (RCA) stent placement Status: Acute (4) Unstable angina pectoris Status: Acute (5) Diabetes Status: Acute Plan: From cardiology's perspective, we will continue to monitor the patient for another 24 hours and plan for discharge home in the morning. A follow-up appointment will be made with Dr. Hendricks in the office post discharge. DNP note has been reviewed, I agree with a documented findings and plan of care. Patient was seen and examined.
[2016-07-25 16:46] LABS: Glucose,Whole Blood 145 mg/dL (75-99)
[2016-07-25 21:26] LABS: Glucose,Whole Blood 165 mg/dL (75-99)
[2016-07-25] MEDS: LISINOPRIL 5 MG TAB PO SCH (21:32)
[2016-07-25] MEDS: TERAZOSIN 5 MG CAP PO SCH (21:32)
[2016-07-26 06:06] LABS: Mean Platelet Volume 6.8
[2016-07-26 06:15] LABS: Glucose,Whole Blood 150 mg/dL (75-99)
[2016-07-26] MEDS: INSULIN LISPRO (humaLOG) 300 UNIT/3 ML VIAL SQ SCH ×4 (06:40→21:35)
[2016-07-26] MEDS: METOPROLOL SUCCINATE (ER) 50 MG TAB.ER.24H PO SCH (09:42)
[2016-07-26] MEDS: ATORVASTATIN 40 MG TAB PO SCH (09:42)
[2016-07-26] MEDS: PRASUGREL 10 MG TAB PO SCH (09:42)
[2016-07-26] MEDS: ASPIRIN 81 MG CHEW PO SCH (09:42)
--- NOTE | 2016-07-26 11:09 | PN ---
DATE OF SERVICE: 07/24/2016 CORRECTION: Patient the note dictated on 07/24/2016 at 1703, date transcribed is 07/24/2016 at 2228. The correct date of service is 07/24/2016
--- NOTE | 2016-07-26 11:17 | PN ---
DATE OF SERVICE: 07/25/2016 PRESENTING COMPLAINT: Chest pain. INTERVAL HISTORY: This patient was admitted with unstable angina, status post cardiac stent to the RCA, doing better, up and about. No chest pain or shortness of breath. Review of systems done for constitutional, cardiovascular, GI, pulmonary; relevant findings as above. Current medications are reviewed. On examination, temperature 97.4, pulse 90, respirations 16, blood pressure 106/57, pulse ox 94% on room air. GENERAL APPEARANCE: Sitting up, comfortable. EYES: Pupils equal, conjunctivae normal. NECK: JVD not raised. Mass not palpable. RESPIRATORY: Decreased breath sounds. CARDIOVASCULAR: Heart sounds muffled, minimal edema. ABDOMEN: Soft. Nontender. Liver and spleen not palpable. PSYCHIATRY: Alert and oriented x3. Mood and affect normal. INVESTIGATIONS: Potassium 4.6. BUN 38, creatinine 1.10. Accu-Cheks are noted. ASSESSMENT: 1. Coronary artery disease with stent to the right coronary artery. 2. Essential hypertension. 3. Hyperlipidemia. 4. Benign prostatic hypertrophy. 5. Low back pain from arthritis. 6. Diabetes mellitus type 2. 7. Chronic left foot drop. 8. ( ). 9. Type 2 diabetes mellitus. 10. Obesity, body mass index of 38.1. 11. Hypertensive heart disease. 12. Moderate aortic stenosis nonrheumatic with moderate severe aortic valve sclerosis. PLAN: Care was discussed with the patient. Encouraged to be more up and about. Hopefully can be discharged by tomorrow if things go fine. Patient's 2-D echocardiogram showed preserved LV function.
[2016-07-26 11:37] LABS: Glucose,Whole Blood 117 mg/dL (75-99)
--- NOTE | 2016-07-26 13:47 | P.PN ---
Progress Note - Text DATE OF SERVICE: 07/26/2016 PRESENTING COMPLAINT: Chest pain INTERVAL HISTORY: This patient was admitted with unstable angina status post cardiac stent to [facility] , doing better today. No chest pain or shortness of breath, tolerating his diet , up with assistance. REVIEW OF SYSTEMS: Done for constitutional ,cardiovascular, GI, pulmonary with relevant findings as above. CURRENT MEDICATIONS Aspirin, Lipitor, Zestril, Toprol-XL, Effient. PHYSICAL EXAM: VITAL SIGNS: Temperature. 97.2 pulse 87 respiratory rate 18 blood pressure 115/60 oxygen saturation 93% on room air GENERAL APPEARANCE: Sitting in a wheelchair, not in distress. EYES: Pupils equal. Conjunctiva normal. NECK: JVD unable to assess. Mass not palpable. RESPIRATORY: Respiratory effort normal. Lungs diminished bilaterally. CARDIOVASCULAR: First and second sounds normal. Mild edema. ABDOMEN: Soft. Liver and spleen not palpable. No tenderness. No mass palpable. PSYCHIATRY: Alert and oriented x3. Mood and affect normal. INTEGUMENT: Right groin site, open to air, tender to palpation no swelling noted. INVESTIGATIONS: 2-D echo: Preserved LV function ASSESSMENT: 1. Coronary artery disease with stent to the right coronary artery. 2. Essential hypertension. 3. Hyperlipidemia. 4. Benign prostatic hypertrophy. 5. Low back pain from arthritis. 6. Diabetes mellitus type 2 7. Chronic left foot drop 8. Obesity body mass index of 38.1. 9. Hypertensive heart disease. 10. Moderate aortic stenosis nonrheumatic with moderate severe aortic valve sclerosis. 11. Urinary tract infection secondary urinary outflow obstruction causing urinary retention PLAN: Plan of care discussed with patient. Patient's urinary symptoms improving will remain on IV ceftriaxone will switch to PO ceftin. Encouraged patient to sit in the chair more frequently and for meals. Discharge tomorrow if remains stable. We'll follow closely [employer] statement: Patient was seen and examined by nurse practitioner Snow Canada in all elements of the case discussed with attending is Dr. Frank
[2016-07-26 16:47] LABS: Glucose,Whole Blood 139 mg/dL (75-99)
--- NOTE | 2016-07-26 17:08 | PN ---
This gentleman underwent stenting of RCA performed by Dr. Donnelly on Wednesday. He is doing well. He is asymptomatic. His right groin is clean and dry with a good pulse. Vital signs are stable. S1, S2 heard normally. Heart sounds heard distantly. Lungs are clear. Abdomen and lower extremity exam unchanged. From a cardiac standpoint, this gentleman can be discharged, but he wants to stay back one more day and he will talk to his admitting physician in this regard. I recommend that we continue current medications. Increase activity, and plan for discharge today.
[2016-07-26 21:32] LABS: Glucose,Whole Blood 163 mg/dL (75-99)
[2016-07-26] MEDS: TERAZOSIN 5 MG CAP PO SCH (21:35)
[2016-07-26] MEDS: LISINOPRIL 5 MG TAB PO SCH (21:35)
[2016-07-27 05:58] LABS: Glucose,Whole Blood 126 mg/dL (75-99)
[2016-07-27] MEDS: INSULIN LISPRO (humaLOG) 300 UNIT/3 ML VIAL SQ SCH ×2 (06:12→12:04)
--- NOTE | 2016-07-27 08:04 | P.PN ---
Subjective Principal diagnosis: RCA stent This is a 80-year-old gentleman with history of hypertension, diabetes , hyperlipidemia, who presented to the hospital with an episode of chest pain. He was taken to the cardiac catheterization lab by Dr. Hendricks and subsequently underwent angioplasty with stenting of the right coronary artery by Dr. Donnelly. Patient was seen and examined this morning, denies any chest pain or difficulty in breathing. Blood pressure 132/60 with a heart rate in the 90s. Objective - Vital Signs Vital signs: Vital Signs Temp 96.7 F L 07/26/16 19:33 Pulse 97 07/27/16 04:00 Resp 18 07/27/16 04:00 BP 133/64 07/27/16 04:00 Pulse Ox 95 07/27/16 04:00 Intake & Output 07/26/16 07/27/16 07/27/16 18:59 06:59 18:59 Intake Total 720 Output Total 300 400 Balance 420 -400 Weight 135 kg Intake: Oral 720 Output: Urine 300 400 Other: Voiding Method Indwelling Catheter Urinal # Voids 2 - Exam PHYSICAL EXAMINATION: HEENT: Head is atraumatic, normocephalic. Pupils equal, round. Neck is supple. There is no elevated jugular venous pressure. HEART EXAMINATION: Heart S1, S2 normal. No murmur or gallop heard. CHEST EXAMINATION: Lungs are clear to auscultation and precussion. No chest wall tenderness is noted on palpation or with deep breathing. ABDOMEN: Soft, nontender. Bowel sounds are heard. No organomegaly noted. Right groin soft, no evidence of any hematoma. EXTREMITIES: 2+ peripheral pulses with no evidence of peripheral edema and no calf tenderness noted. NEUROLOGIC patient is awake, alert and oriented -3. . - Labs CBC & Chem 7: 07/26/16 05:35 07/25/16 05:47 Labs: Abnormal Lab Results - Last 24 Hours (Table) 07/26/16 07/26/16 07/26/16 Range/Units 11:36 16:45 21:03 POC Glucose (mg/dL) 117 H 139 H 163 H (75-99) mg/dL 07/27/16 Range/Units 05:55 POC Glucose (mg/dL) 126 H (75-99) mg/dL Assessment and Plan (1) HTN (hypertension) Status: Acute (2) Hyperlipemia Status: Acute (3) S/P right coronary artery (RCA) stent placement Status: Acute (4) Unstable angina pectoris Status: Acute (5) Diabetes Status: Acute Plan: From cardiology's perspective, patient may be able to be discharged home today. We'll make him a follow-up appointment with Dr. Watkins in the office post discharge. He will be discharged home on aspirin 81 mg daily, Lipitor 40 mg daily, lisinopril 5 mg daily, metoprolol tartrate 50 mg daily, Effient 10 mg daily, and sublingual nitroglycerin as needed for chest pain. Patient has been educated regarding his medication as well as follow-up appointment and prescriptions have been provided. DNP note has been reviewed, I agree with a documented findings and plan of care. Patient was seen and examined.
[2016-07-27] MEDS: METOPROLOL SUCCINATE (ER) 50 MG TAB.ER.24H PO SCH (08:30)
[2016-07-27] MEDS: ASPIRIN 81 MG CHEW PO SCH (08:30)
[2016-07-27] MEDS: ATORVASTATIN 40 MG TAB PO SCH (08:30)
[2016-07-27] MEDS: PRASUGREL 10 MG TAB PO SCH (08:30)
[2016-07-27 09:23] VITALS: BP 129/60; PULSE 95; RESP 16; TEMP 98.2
--- NOTE | 2016-07-27 11:24 | PN ---
DATE OF SERVICE: 07/26/2016 ATTENDING NOTE: This patient was seen and examined by me earlier today. Reviewed the note from the nurse practitioner, Ms. Canada. Discussed additional findings below. This is a patient with unstable angina, status post stent to the RCA. Breathing is better, stable, tolerating a diet. Request to be kept after one more day. On exam, lungs decreased breath sounds. CARDIOVASCULAR: First and second sounds are normal. ASSESSMENT: 1. Coronary artery disease, status post stent right coronary artery. 2. Urinary tract infection. PLAN: Continue with antibiotics. Otherwise, patient doing better. Patient should be discharged tomorrow.
[2016-07-27 11:58] LABS: Glucose,Whole Blood 108 mg/dL (75-99)
--- NOTE | 2016-07-28 09:20 | DS ---
DATE OF ADMISSION: 07/24/2016 DATE OF DISCHARGE: 07/27/2016 FINAL DIAGNOSES: 1. Unstable angina with underlying coronary artery disease. 2. Essential hypertension. 3. Hyperlipidemia. 4. Benign prostatic hypertrophy. 5. Chronic low back pain from arthritis. 6. Diabetes mellitus type 2, on oral hypoglycemic. 7. Chronic left foot drop. 8. 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 9. Morbid obesity, body mass index of 41.5. 10. Moderate aortic stenosis and moderate severe aortic valve sclerosis, nonrheumatic. 11. Acute urinary tract infection from bladder outflow obstruction. PROCEDURE: Cardiac catheterization with stent to RCA. HOSPITAL COURSE: This patient presented with cardiac sounding presentation. Cardiac cath finally led to patient having a stent to the RCA. Patient's 2-D echocardiogram showed moderate aortic stenosis, EF preserved at 55% to 60%. Patient also has got hypertensive heart disease. On the day of discharge, patient doing well. No chest pain or shortness of breath. On exam, lungs are clear. CARDIOVASCULAR: First and second sounds normal. Care was discussed with the patient. CONSULTATION: 1. Dr. Maura Hendricks from Cardiology. 2. Dr. Venu Donnelly from Interventional Cardiology. DISCHARGE MEDICATIONS: 1. Lopid 600 mg p.o. b.i.d. 2. Zestril 5 mg p.o. q.h.s. 3. Hytrin 5 mg p.o. q.h.s. 4. Glucophage 500 mg p.o. b.i.d. 5. Bydureon Pen 2 mg subQ on Wednesday. 6. Vitamin D3 one tablet p.o. daily. 7. Toprol-XL 50 mg p.o. daily. 8. Centrum Silver 1 tablet p.o. daily. 9. Aspirin 81 mg p.o. daily. 10. Lipitor 40 mg p.o. daily. 11. Nitrostat 0.4 sublingual q.5 p.r.n. 12. Effient 10 mg p.o. daily. 13. Ceftin 250 mg p.o. b.i.d. Follow up with Dr. Cerrato in one week. Follow up with PATSY Carey in a week. Care was discussed with the patient. Questions were answered.
--- NOTE | 2016-09-03 11:57 | CC ---
CARDIAC CATH REPORT INDICATIONS: Unstable angina. PROCEDURE NOTE: After obtaining informed consent, left heart catheterization and coronary angiogram were performed via the right femoral artery using standard Denise catheters. The patient tolerated the procedure well without any obvious immediate complications. The patient received moderate conscious sedation. Total sedation time was 15 minutes. FINDINGS: Hemodynamics: Left ventricular end diastolic pressure is 130/70 mmHg. LEFT VENTRICULOGRAM: Left ventriculogram is not performed. ANGIOGRAPHIC DATA: LEFT MAIN CORONARY ARTERY: The left main coronary artery appears calcified. Shows mild atherosclerotic plaque. Divides into left anterior descending coronary artery and circumflex coronary artery. LEFT ANTERIOR DESCENDING CORONARY ARTERY: The proximal LAD shows mild atherosclerotic plaque. Mid LAD shows 50 to 60% stenosis. CIRCUMFLEX CORONARY ARTERY: Circumflex coronary artery shows mild stenosis. RIGHT CORONARY ARTERY: Right coronary artery which is heavily calcified shows 80% in its mid portion. CONCLUSION: 80% stenosis involving the right coronary artery. PLAN: The patient will undergo angioplasty of the same. They patient has a heavily calcified vessel and has mild to moderate disease involving the left system. SUE
== END 2016-07-27 15:00 | disposition home or self-care (01) | DRG 247 ==
LOC: EC 17:13 → 3OBS 18:51 → 6SEL 07-24 10:48 → OBSVTOIN 07-24 18:33
PROVIDERS: ADMIT Hospitalist; ATTEND Hospitalist
PROC: 4A023N7 Measurement of Cardiac Sampling and Pressure, Left Heart, Percutaneous Approach (ICD-10-PCS; 2016-07-24)
PROC: B2111ZZ Fluoroscopy of Multiple Coronary Arteries using Low Osmolar Contrast (ICD-10-PCS; 2016-07-24)
PROC: 027034Z Dilation of Coronary Artery, One Artery with Drug-eluting Intraluminal Device, Percutaneous Approach (ICD-10-PCS; principal; 2016-07-24 09:15)
DX: I25.110 Atherosclerotic heart disease of native coronary artery with unstable angina pectoris (principal); N39.0 Urinary tract infection, site not specified; N13.8 Other obstructive and reflux uropathy; I11.9 Hypertensive heart disease without heart failure; E11.42 Type 2 diabetes mellitus with diabetic polyneuropathy; E66.01 Morbid (severe) obesity due to excess calories; E78.5 Hyperlipidemia, unspecified; G89.29 Other chronic pain; H91.90 Unspecified hearing loss, unspecified ear; I35.0 Nonrheumatic aortic (valve) stenosis; I49.3 Ventricular premature depolarization; M10.9 Gout, unspecified; M21.372 Foot drop, left foot; N40.1 Benign prostatic hyperplasia with lower urinary tract symptoms; M47.9 Spondylosis, unspecified; Z68.41 Body mass index [BMI] 40.0-44.9, adult; Z79.82 Long term (current) use of aspirin; Z79.84 Long term (current) use of oral hypoglycemic drugs; Z79.899 Other long term (current) drug therapy; Z87.891 Personal history of nicotine dependence; Z96.651 Presence of right artificial knee joint; Z82.49 Family history of ischemic heart disease and other diseases of the circulatory system
CPT/HCPCS: 36415; 71020; 80048; 80053; 80061; 81001; 82550; 82553; 83036; 83735; 84484; 85025; 85049; 85347; 85610; 85730; 93005; 93306; 93458; 94760; 96365; 96376; 99291

== ENCOUNTER 2016-08-04 11:15 | Inpatient (IN) | payer MEDICARE ==
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
[2016-08-04 12:01] LABS: ALT 24 U/L (21-72); AST 12 U/L (17-59); Alkaline Phosphatase 94 U/L (38-126); Anion Gap 12 mmol/L; Basophils # (A) 0.1 k/uL (0-0.2); Basophils % (A) 1 %; Blood Urea Nitrogen 27 mg/dL (9-20); CH 29.8; CHCM 33.8; Calcium 9.2 mg/dL (8.4-10.2); Carbon Dioxide 21 mmol/L (22-30); Chloride 109 mmol/L (98-107); Eosinophils # (A) 0.2 k/uL (0-0.7); Eosinophils % (A) 2 %; Glucose 129 mg/dL (74-99); HCT 33.7 % (39.0-53.0); HDW 3.71; HGB 11.1 gm/dL (13.0-17.5); Hypochromasia Slight; Luc # (Auto) 0.23; Luc % (Auto) 4; Lymphocytes # (A) 1.4 k/uL (1.0-4.8); Lymphocytes % (A) 20 %; MCH 29.3 pg (25.0-35.0); MCHC 33.1 g/dL (31.0-37.0); MCV 88.6 fL (80.0-100.0); Mean Platelet Volume 6.9; Monocytes # (A) 0.5 k/uL (0-1.0); Monocytes % (A) 7 %; Neutrophils # (A) 4.5 k/uL (1.3-7.7); Neutrophils % (A) 66 %; Non-African American GFR(MDRD) >60 (>60 ml/min/1.73 sqM); Poikilocytosis Slight; Potassium 4.5 mmol/L (3.5-5.1); RDW 15.3 % (11.5-15.5); Sodium 142 mmol/L (137-145); Total Bilirubin 1.2 mg/dL (0.2-1.3); Total Protein 6.3 g/dL (6.3-8.2); WBC 6.8 k/uL (3.8-10.6); WBC (Perox) 6.87
--- NOTE | 2016-08-04 12:01 | XR ---
EXAMINATION TYPE: XR chest 2V DATE OF EXAM: 08/04/2016 COMPARISON: 07/23/2016 TECHNIQUE: PA and lateral views submitted. HISTORY: Chest pain FINDINGS: The lungs are clear and there is no pneumothorax, pleural effusion, or focal pneumonia. Hypertrophi c and degenerative change of the spine. Cardiomegaly noted. Arthropathy of the shoulders. No overt fa ilure. IMPRESSION: 1. Cardiomegaly.
[2016-08-04 12:08] LABS: INR 1.1 (<1.1); Partial Thromboplastin Time 26.3 sec (22.0-30.0); Prothrombin Time 11.1 sec (9.0-12.0)
[2016-08-04 12:11] LABS: Creatine Kinase 38 U/L (55-170)
[2016-08-04 12:24] LABS: Creatine Kinase MB 0.9 ng/mL (0.0-2.4); Troponin I <0.012 ng/mL (0.000-0.034)
[2016-08-04] MEDS ORDERED: MORPHINE SULFATE 4 MG/ML SYRINGE IVP STA (12:39)
[2016-08-04] MEDS ORDERED: HEPARIN SODIUM,PORCINE 5,000 UNIT/ML 1 ML VIAL IV PRN (12:45)
[2016-08-04] MEDS ORDERED: MORPHINE SULFATE 4 MG/ML SYRINGE IV PRN (12:45)
[2016-08-04] MEDS ORDERED: ASPIRIN 81 MG CHEW PO STA (12:45)
[2016-08-04] MEDS ORDERED: NITROGLYCERIN SL TABS 0.4 MG TAB SUBLINGUAL PRN ×3 (12:45→13:43)
[2016-08-04] MEDS ORDERED: HEPARIN SODIUM,PORCINE 5,000 UNIT/ML 1 ML VIAL IV ONE (12:45)
[2016-08-04] MEDS: SODIUM CHLORIDE 0.9% 1,000 ML IV SCH (12:59)
[2016-08-04] MEDS: HEPARIN SODIUM,PORCINE/D5W PMX 25,000 UNIT in DEXTROSE/WATER 1 500ML.BAG IV SCH (12:59)
[2016-08-04] MEDS ORDERED: ALPRAZolam 0.25 MG TAB PO PRN (13:43)
[2016-08-04] MEDS ORDERED: ALPRAZolam 0.5 MG TAB PO PRN (13:43)
[2016-08-04] MEDS ORDERED: SODIUM CHLORIDE 0.9% 1,000 ML in EMPTY BAG 1 BAG IV ONE (13:43)
[2016-08-04] MEDS ORDERED: ASPIRIN 325 MG TAB PO STA (13:45)
[2016-08-04] MEDS ORDERED: ATORVASTATIN 80 MG TAB PO STA (13:45)
--- NOTE | 2016-08-04 15:59 | CONS ---
DATE OF CONSULTATION: Mr. Galicia is a 81-year-old male with a known history of coronary artery disease, who was in the hospital recently with symptoms of chest discomfort, underwent cardiac catheterization by Dr. Hendricks, was found to have critical stenosis involving the mid right coronary artery as well as borderline significant disease in the small LAD. He underwent stenting of the mid right coronary artery on the july using a drug-eluting stent. He has done well. Went home. He woke up this morning with some chest discomfort and dyspnea. Because of that, he went and seen Dr. Cerrato and his blood pressure was on the low side and he was having some vague pains so he was referred to the emergency room. At the time of my evaluation he is pain free. Patient is somewhat limited in his physical activity. He has dropfoot on the left side. His breathing is stable at this time. He denies any dizziness, palpitation. He denies any syncope. He has chronic peripheral edema that is better. He denies any documented arrhythmia. His coronary risk factors are remarkable for history of hypertension, hyperlipidemia, and diabetes mellitus. He is a nonsmoker. His medications at home include: Metformin, Hytrin, Effient 10 mg daily, metoprolol succinate 50 mg daily, gemfibrozil 600 mg twice a day, Lipitor 40 mg daily, aspirin once a day. REVIEW OF SYSTEMS: RESPIRATORY SYSTEM: He has dyspnea on exertion. No recent wheezing, cough. GI SYSTEM: No recent GI bleeding. No peptic ulcer disease. SYSTEM: No dysuria or hematuria. NERVOUS SYSTEM: No seizure. PHYSICAL EXAMINATION: He is a 81-year-old male, alert, oriented, in no apparent distress. Blood pressure 111/56 with a heart in the 90s. HEAD: Normocephalic. EYES: Sclerae anicteric. NECK: Good upstroke. No bruit. No jugular venous distention. LUNGS: Clear to auscultation. HEART: Regular rate and rhythm. S1, S2, no S3, with a systolic murmur at the base. No diastolic murmur. No rub. ABDOMEN: Soft, obese, nontender. EXTREMITIES: +1 edema bilaterally. LAB DATA: BUN and creatinine 27 and 0.84. Potassium 4.5. Troponin less than 0.012. Hemoglobin of 11.1. EKG revealed sinus mechanism with rare PVCs, but no acute ST segment changes. Chest x-ray shows cardiomegaly. IMPRESSION: 1. Symptoms of chest discomfort in a patient with recent percutaneous revascularization of the right coronary artery. At this time we would worry about acute stent closure, but because of his symptoms further evaluation will be needed. 2. History of hypertension. 3. Hyperlipidemia. 4. Diabetes mellitus. 5. Drop foot on the left side. RECOMMENDATIONS: I will discuss his case with Dr. Hendricks who is his primary brass pourer. I would recommend to proceed with coronary angiography to assess his status and guide his treatment. The rationale behind the procedure as well as risks and complications were discussed with the patient and his family and are in full understanding and agreement. Thank you for this consult. We will follow with you.
[2016-08-04 17:15] LABS: Glucose,Whole Blood 112 mg/dL (75-99)
[2016-08-04] MEDS: GEMFIBROZIL 600 MG TAB PO SCH (18:36)
[2016-08-04 20:22] LABS: Creatine Kinase 38 U/L (55-170)
[2016-08-04 20:37] LABS: Creatine Kinase MB 0.8 ng/mL (0.0-2.4); Troponin I <0.012 ng/mL (0.000-0.034)
[2016-08-04] MEDS: PRASUGREL 10 MG TAB PO SCH (20:54)
[2016-08-04] MEDS: LISINOPRIL 5 MG TAB PO SCH (20:54)
[2016-08-04] MEDS: TERAZOSIN 5 MG CAP PO SCH (20:54)
[2016-08-04 20:56] LABS: Glucose,Whole Blood 141 mg/dL (75-99)
[2016-08-05 00:06] LABS: Creatine Kinase 29 U/L (55-170)
[2016-08-05 00:19] LABS: Creatine Kinase MB 0.6 ng/mL (0.0-2.4); Troponin I <0.012 ng/mL (0.000-0.034)
[2016-08-05 03:30] LABS: Mean Platelet Volume 7.4
[2016-08-05 04:55] LABS: Cholesterol 54 mg/dL (<200); HDL Cholesterol 30 mg/dL (40-60); Triglycerides 129 mg/dL (<150)
[2016-08-05] MEDS: GEMFIBROZIL 600 MG TAB PO SCH ×2 (06:46→19:38)
[2016-08-05 07:03] LABS: Glucose,Whole Blood 134 mg/dL (75-99)
--- NOTE | 2016-08-05 07:32 | HP ---
DATE OF ADMISSION: 08/04/2016 PRESENTING COMPLAINT: Chest pain. HISTORY OF PRESENTING COMPLAINT: This is a 81-year-old patient who was recently in the hospital with unstable angina. The patient's chronic stable medical conditions include hypertension, hyperlipidemia, BPH, chronic low back pain, diabetes, chronic left foot drop, diabetes mellitus type 2, moderate aortic stenosis with moderate severe aortic valve sclerosis. Patient had a cardiac cath with stent to the RCA. A 2-D echo showed preserved EF of 55% to 60%. The patient was woken up this morning around 6:00 a.m. with chest pressure lasting for over 3 hours and slowly subsided. Blood pressure 95/60. The patient was short of breath. No sweating. No radiation. Hence decided to come in. REVIEW OF SYSTEMS: CONSTITUTIONAL: Tired. HEENT: Decreased hearing. RESPIRATORY: None. CARDIOVASCULAR: None. GASTROINTESTINAL: None. GENITOURINARY: None. MUSCULOSKELETAL: Aches and pains in the joints. Dermatological: None. HEMATOLOGICAL: None. LYMPHATICS: None. PSYCHIATRY: None. NEUROLOGICAL: None. PAST MEDICAL HISTORY: Hypertension, hyperlipidemia, BPH, back pain gout, diabetes, left foot drop and peripheral neuropathy. PAST SURGICAL HISTORY: Cholecystectomy, joint replacement, two knee replacements of the right knee. SOCIAL HISTORY: Lives by himself. Uses a walker, has a wheelchair to get about. No smoking or alcohol. FAMILY HISTORY: Lung cancer. HOME MEDICATIONS: 1. Glucophage 500 mg p.o. b.i.d. 2. Terazosin 5 mg p.o. q.h.s. 3. Effient 10 mg q.h.s. 4. Nitrostat 0.4 sublingual q.5 p.r.n. 5. Centrum Silver 1 tablet p.o. daily. 6. Toprol-XL 50 mg p.o. daily. 7. Zestril 5 mg p.o. q.h.s. 8. Lopid 600 mg p.o. b.i.d. 9. ( ) 2 mg Wednesday. 10. Vitamin D3 1 tablet p.o. daily. 11. Cinnamon 1000 mg p.o. daily. 12. Lipitor 40 mg p.o. q.h.s. 13. Aspirin 81 mg p.o. daily. ALLERGIES: None. On examination, temperature 98.2, pulse 75, respiration 18, blood pressure 105/71, pulse ox 95% on room air. GENERAL APPEARANCE: Well built, BMI of 38.4. Sitting up, not in distress. EYES: Pupils equal. Conjunctivae normal. HEENT: External appearance of nose and ears normal. Oral cavity normal. NECK: JVD unable to assess. Mass not palpable. RESPIRATORY: Effort normal. LUNGS: Diminished breath sounds. CARDIOVASCULAR: First and second sounds normal. No edema. ABDOMEN: Soft, nontender. Liver and spleen not palpable. LYMPHATIC: No lymph nodes palpable in neck or axillae. PSYCHIATRY: Alert and oriented x3. Mood and affect normal. INVESTIGATIONS: White count 6.8, hemoglobin 11.1. Potassium 4.5. BUN 27, creatinine 0.84. Troponin x2 less than 0.012. EKG nonspecific ST segment changes. ASSESSMENT: 1. Chest pain in a patient with known coronary artery disease with recent stent to RCA about ten days ago. 2. Essential hypertension. 3. Hyperlipidemia. 4. Benign prostatic hypertrophy. 5. Chronic low back pain from arthritis. 6. Type 2 diabetes mellitus on oral hypoglycemics. 7. Chronic left foot drop. 8. 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 9. Morbid obesity, body mass index of 41.5. 10. Moderate aortic stenosis and moderate aortic valve sclerosis nonrheumatic. PLAN: Home medications are resumed. Patient but on IV heparin and cardiology was consulted. Serial cardiac enzymes are in place. Care was discussed with the patient. Copy to Dr. Cerrato.
[2016-08-05] MEDS ORDERED: SODIUM CHLORIDE 0.9% 1,000 ML IV ONE (08:41)
[2016-08-05] MEDS ORDERED: fentaNYL (PF) 50 MCG/ML 2 ML AMP ONE (08:42)
[2016-08-05] MEDS ORDERED: fentaNYL (PF) 50 MCG/ML 2 ML AMP IVP ONE (08:48)
[2016-08-05] MEDS ORDERED: LIDOCAINE 2% INJ 20 MG/ML SQ ONE ×2 (08:51)
[2016-08-05] MEDS ORDERED: ASPIRIN 325 MG TAB PO SCH (09:00)
[2016-08-05] MEDS ORDERED: RX INFO: IV CONTRAST WAS GIVEN 1 EACH MISC MISCELLANE PRN (09:21)
[2016-08-05 09:24] LABS: Hemoglobin A1C 5.7 % (4.2-6.1)
[2016-08-05] MEDS ORDERED: IOHEXOL 350 MG/ML 100 ML BOTTLE INJ ONE (09:28)
[2016-08-05] MEDS: INSULIN LISPRO (humaLOG) 300 UNIT/3 ML VIAL SQ SCH ×4 (09:49→20:44)
[2016-08-05] MEDS: ASPIRIN 81 MG CHEW PO SCH (09:50)
--- NOTE | 2016-08-05 10:05 | CC ---
DATE OF SERVICE: INDICATION: Unstable angina. This is a 81-year-old gentleman with history of coronary artery disease, status post angioplasty of right coronary artery who presented to the hospital with symptoms of unstable angina, was evaluated by my associate, Dr. Donnelly, and was advised to undergo cardiac catheterization. The patient had been explained of risks, benefits, and alternatives. PROCEDURE NOTE: After obtaining informed consent, left heart catheterization and coronary angiogram are performed via the left femoral artery using standard Denise catheters. Patient tolerated the procedure well without any obvious immediate complications. A femoral angiogram will be obtained and Angio-Seal will be deployed if we can. Total conscious sedation time was 30 minutes. FINDINGS: 1. HEMODYNAMICS: Left ventricular end-diastolic pressure is 18 to 20 mm. There is no significant gradient across the aortic valve. 2. LEFT VENTRICULOGRAM: Left ventriculogram is not performed. 3. ANGIOGRAPHIC DATA: Left main coronary artery: Left main coronary artery appears calcified and shows an atherosclerotic plaque, but there is good reflux and I do not believe there is a significant left main stenosis. It divides into left anterior descending coronary artery and circumflex coronary artery. LAD and its midportion shows a 70% stenosis right at the origin of the diagonal branch, which was noted on a prior cardiac cath. The vessel is heavily calcified. Circumflex is a nondominant vessel, shows mild atherosclerotic plaque. Right coronary artery is a large dominant vessel and the previously stented segment appears patent. The PDA shows a 70% stenosed, but it is a small caliber vessel that we opted to manage medically last time. CONCLUSIONS: 1. Patent stent within the right coronary artery. 2. A 70% stenosis involving mid left anterior descending artery right at the origin of the diagonal branch. PLAN: The angiographic data was reviewed by Dr. Donnelly who performed his previous angioplasty. Patient was advised medical therapy at this time and maybe consider an outpatient stress test over the next several weeks and if he has ischemia in LAD distribution bring him back and perform a complex angioplasty of the LAD.
[2016-08-05] MEDS: SODIUM CHLORIDE 0.9% 1,000 ML IV SCH ×3 (10:51→19:40)
[2016-08-05] MEDS: METOPROLOL SUCCINATE (ER) 50 MG TAB.ER.24H PO SCH (10:53)
[2016-08-05 12:14] LABS: Glucose,Whole Blood 124 mg/dL (75-99)
[2016-08-05] MEDS: HEPARIN SODIUM,PORCINE/D5W PMX 25,000 UNIT in DEXTROSE/WATER 1 500ML.BAG IV SCH (12:19)
[2016-08-05] MEDS: MULTIVITAMINS, THERA 1 EACH TAB PO SCH (12:37)
[2016-08-05 17:15] LABS: Glucose,Whole Blood 136 mg/dL (75-99)
[2016-08-05] MEDS: TERAZOSIN 5 MG CAP PO SCH (19:37)
[2016-08-05] MEDS: LISINOPRIL 5 MG TAB PO SCH (19:38)
[2016-08-05] MEDS: ATORVASTATIN 40 MG TAB PO SCH (19:38)
[2016-08-05] MEDS: PRASUGREL 10 MG TAB PO SCH (19:38)
[2016-08-05] MEDS: ACETAMINOPHEN TAB 325 MG TAB PO PRN (19:39)
[2016-08-05 20:42] LABS: Glucose,Whole Blood 129 mg/dL (75-99)
--- NOTE | 2016-08-05 22:51 | PN ---
DATE OF SERVICE: 08/05/2016 This 81-year-old gentleman who was admitted with chest pain had stent to RCA. The patient had cardiac catheterization today which showed a patent stent and 70% involving the LAD right at the origin of the diagonal branch. The patient was advised medical therapy and an outpatient stress test. No chest pain. No palpitation. No fever. On exam, alert and oriented x3. Pulse 85, blood pressure 95/50, respiration 18, temperature 97.6, pulse ox 93% on room air. HEENT: Conjunctivae normal. NECK: No jugular venous distention. CARDIOVASCULAR SYSTEM: S1, S2 muffled. RESPIRATORY SYSTEM: Breath sounds diminished at the bases. A few scattered rhonchi. No crackles. ABDOMEN: Soft, nontender. No mass palpable. LEGS: No edema. No swelling. NERVOUS SYSTEM: No focal deficit. LABS: Hemoglobin 11.1. Glucose 141. 20. ASSESSMENT: 1. Chest pain with possible unstable angina. 2. History of recent right coronary artery stent, which is patent. 3. Stenosis of 70% of the left anterior descending coronary artery right at the origin of the diagonal branch. 4. Essential hypertension. 5. Hyperlipidemia. 6. Benign prostatic hypertrophy. 7. Chronic low back pain with arthritis. 8. Diabetes mellitus, type 2, on oral hypoglycemics. 9. Chronic left foot drop. 10. Diabetes mellitus, type 2, causing peripheral neuropathy. 11. Morbid obesity; body mass index of 41.5. 12. Moderate aortic stenosis with moderate aortic valve sclerosis, non-rheumatic. RECOMMENDATIONS AND DISCUSSION: I recommend to continue with the current medications, continue with the monitoring, symptomatic treatment. Otherwise, at this time I would continue with the medical management recommended by Cardiology. Increase ambulation. Repeat labs. Guarded prognosis because of multiple complex medical issues. Further recommendations to follow. See orders for further details. Antiplatelet agents. MTDD
[2016-08-06 06:39] LABS: Glucose,Whole Blood 139 mg/dL (75-99)
[2016-08-06 07:20] LABS: Basophils # (A) 0.1 k/uL (0-0.2); Basophils % (A) 1 %; CHCM 33.1; Eosinophils # (A) 0.1 k/uL (0-0.7); Eosinophils % (A) 2 %; HCT 31.8 % (39.0-53.0); HDW 3.72; HGB 10.6 gm/dL (13.0-17.5); Hypochromasia Slight; Luc # (Auto) 0.16; Luc % (Auto) 2; Lymphocytes # (A) 1.1 k/uL (1.0-4.8); Lymphocytes % (A) 16 %; MCH 29.3 pg (25.0-35.0); MCHC 33.2 g/dL (31.0-37.0); MCV 88.3 fL (80.0-100.0); Mean Platelet Volume 6.9; Monocytes # (A) 0.5 k/uL (0-1.0); Monocytes % (A) 8 %; Neutrophils # (A) 4.7 k/uL (1.3-7.7); Neutrophils % (A) 72 %; Poikilocytosis Slight; RDW 15.2 % (11.5-15.5); WBC 6.6 k/uL (3.8-10.6); WBC (Perox) 6.61
[2016-08-06 07:27] LABS: Anion Gap 13 mmol/L; Blood Urea Nitrogen 25 mg/dL (9-20); Calcium 8.8 mg/dL (8.4-10.2); Carbon Dioxide 15 mmol/L (22-30); Chloride 110 mmol/L (98-107); Glucose 120 mg/dL (74-99); Non-African American GFR(MDRD) >60 (>60 ml/min/1.73 sqM); Potassium 4.2 mmol/L (3.5-5.1); Sodium 138 mmol/L (137-145)
[2016-08-06] MEDS: ACETAMINOPHEN TAB 325 MG TAB PO PRN ×2 (07:27→17:52)
[2016-08-06] MEDS: INSULIN LISPRO (humaLOG) 300 UNIT/3 ML VIAL SQ SCH ×4 (09:01→20:05)
[2016-08-06] MEDS: METOPROLOL SUCCINATE (ER) 50 MG TAB.ER.24H PO SCH (09:01)
--- NOTE | 2016-08-06 10:33 | PN ---
Mr. Galicia is a 81-year-old male who presented with symptoms of chest discomfort, had a prior history of percutaneous revascularization, underwent cardiac catheterization yesterday by Dr. Hendricks, was found to have patent stent to the right coronary artery. He has disease in the LAD with no progression. He is doing well this morning. He had no chest pain. His breathing has been stable. He denies any dizziness or palpitation. He continued to be on aspirin once a day, Effient 10 mg daily, Lipitor 40 mg daily, Lopid 600 mg twice a day, lisinopril 5 mg daily, metoprolol succinate 50 mg daily, Hytrin 5 mg daily. PHYSICAL EXAMINATION: Blood pressure 134/60 with the heart rate in the 80s. LUNGS: Clear. HEART: Regular rate and rhythm. S1 and S2, no S3, no rub. ABDOMEN: Soft, obese, nontender. EXTREMITIES: Left groin with no hematoma. IMPRESSION: 1. Symptoms of chest pain with no evidence of progression of disease with patent stent of the right coronary artery and disease in a diffuse pattern in the left anterior descending. 2. History of hypertension. 3. Hyperlipidemia. 4. Diabetes mellitus. RECOMMENDATIONS: From the cardiac standpoint, he is stable. I would expect he should be able to be discharged in the next 24 hours and follow up with Dr. Hendricks as an outpatient.
[2016-08-06 12:27] LABS: Glucose,Whole Blood 122 mg/dL (75-99)
[2016-08-06] MEDS: SODIUM CHLORIDE 0.9% 1,000 ML IV SCH ×2 (12:37→17:03)
[2016-08-06] MEDS: MULTIVITAMINS, THERA 1 EACH TAB PO SCH (12:38)
[2016-08-06] MEDS: ASPIRIN 81 MG CHEW PO SCH (12:38)
[2016-08-06] MEDS: HEPARIN SODIUM,PORCINE/D5W PMX 25,000 UNIT in DEXTROSE/WATER 1 500ML.BAG IV SCH (16:17)
[2016-08-06 16:56] LABS: Glucose,Whole Blood 130 mg/dL (75-99)
[2016-08-06] MEDS: ATORVASTATIN 40 MG TAB PO SCH (20:02)
[2016-08-06] MEDS: LISINOPRIL 5 MG TAB PO SCH (20:02)
[2016-08-06] MEDS: PRASUGREL 10 MG TAB PO SCH (20:03)
[2016-08-06] MEDS: TERAZOSIN 5 MG CAP PO SCH (20:03)
[2016-08-06 20:04] LABS: Glucose,Whole Blood 138 mg/dL (75-99)
--- NOTE | 2016-08-06 23:00 | PN ---
DATE OF SERVICE: 08/06/2016 This 81-year-old gentleman who was admitted with chest pain, unstable angina, had a cardiac catheterization. The recent stent was found to be patent, but stenosis of 70% in the LAD was noted. Cardiology is recommending medical treatment at this time. Patient is being closely monitored at this time. No chest pain. Diffuse disease in the LAD was also noted. No fever. No cough. On exam, alert and oriented x3. Pulse 91, blood pressure 91/53, respiration 18, temperature 98 degrees, pulse ox 94% on room air. HEENT: Conjunctivae normal. NECK: No jugular venous distention. CARDIOVASCULAR SYSTEM: S1, S2 muffled. RESPIRATORY SYSTEM: Breath sounds diminished at the bases. No rhonchi. No crackles. ABDOMEN: Soft, non-tender. No mass palpable. LEGS: No edema. No swelling. NERVOUS SYSTEM: No focal deficit. LABS: Hemoglobin 10.6. Glucose 139. ASSESSMENT: 1. Chest pain with possible unstable angina, present on admission. 2. History of recent right coronary artery stent, which is patent. 3. Status post cardiac catheterization showing 70% stenosis of left anterior descending coronary artery and diffuse disease. 4. Essential hypertension. 5. Hyperlipidemia. 6. Benign prostatic hypertrophy. 7. Chronic low back pain with arthritis. 8. Diabetes mellitus, type 2, on hypoglycemic. 9. Chronic left foot drop. 10. Diabetes mellitus, type 2, causing peripheral neuropathy. 11. Morbid obesity, body mass index of 41.5. 12. Moderate aortic stenosis with moderate sclerosis, non-rheumatic. 13. Normocytic anemia of chronic disease. 14. FULL CODE. RECOMMENDATIONS AND DISCUSSION: I recommend to continue with the current medications, continue with the monitoring, symptomatic treatment. Closely follow with Cardiology. Medical treatment. Guarded prognosis. Further recommendations to follow. MTDD
[2016-08-07] MEDS: ACETAMINOPHEN TAB 325 MG TAB PO PRN ×4 (00:14→22:15)
[2016-08-07] MEDS: SODIUM CHLORIDE 0.9% 1,000 ML IV SCH ×3 (02:48→12:26)
[2016-08-07 05:48] LABS: Glucose,Whole Blood 131 mg/dL (75-99)
[2016-08-07] MEDS: INSULIN LISPRO (humaLOG) 300 UNIT/3 ML VIAL SQ SCH ×4 (06:18→21:24)
[2016-08-07 07:47] LABS: Mean Platelet Volume 7.1
[2016-08-07] MEDS: ASPIRIN 81 MG CHEW PO SCH (09:07)
[2016-08-07] MEDS: METOPROLOL SUCCINATE (ER) 50 MG TAB.ER.24H PO SCH (09:08)
[2016-08-07 11:45] LABS: Glucose,Whole Blood 127 mg/dL (75-99)
[2016-08-07] MEDS: HEPARIN SODIUM,PORCINE/D5W PMX 25,000 UNIT in DEXTROSE/WATER 1 500ML.BAG IV SCH (12:19)
[2016-08-07] MEDS: MULTIVITAMINS, THERA 1 EACH TAB PO SCH (12:30)
--- NOTE | 2016-08-07 14:43 | DS ---
DATE OF ADMISSION: 08/06/2016 DATE OF DISCHARGE: FINAL DIAGNOSES: 1. Chest pain with possible unstable angina present on admission, stable. 2. Status post cardiac catheterization showing 70% of the LAD with diffuse disease. 3. History of recent right RCA stent, which is patent in the recent cardiac. 4. Essential hypertension. 5. Hyperlipidemia. 6. Benign prostatic hypertrophy. 7. Chronic low back pain with arthritis. 8. Degenerative joint disease. 9. Gait dysfunction. 10. Diabetes mellitus type 2 with oral hypoglycemic drugs. 11. Chronic left foot drop. 12. Diabetic peripheral neuropathy. 13. Morbid obesity with body mass index of 41.5. 14. Moderate aortic stenosis with moderate aortic sclerosis, nonrheumatic. 15. Normocytic anemia, anemia of chronic disease. 16. FULL CODE. DISCHARGE DISPOSITION: The patient will be discharged in stable condition with guarded prognosis. Total time taken 35 minutes. HISTORY OF PRESENT ILLNESS: This 81-year-old gentleman with a past medical history of multiple medical problems admitted with chest pain. Cardiac catheterization was done with the findings as above. The patient has stable coronary artery disease apparently and the medical treatment recommended. Please refer to cardiology notes for further details. PT and OT was evaluated and [facility] is recommended. On exam, Vitals are stable. CARDIOVASCULAR: S1, S2. ABDOMEN: Soft. NERVOUS SYSTEM: Diffusely weak especially the lower legs. The labs are noted, reviewed. DISCHARGE ADVICE: 1. Diet is cardiac. 2. Activity limited until follow-up. 3. Follow up with Dr. Painting or Dr. Ibarra in [facility]. 4. Follow up with Dr. Cerrato one week after discharge from [facility]. 5. Follow with Dr. Hendricks in one week. Medications are as follows: 1. Aspirin 81 mg p.o. q.a.m. 2. Lipitor 40 mg q.h.s. 3. Cinnamon 1000 mg daily. 4. Vitamin D3 1 p.o. daily. 5. Exenatide 2 mg subcu Wednesday. 6. Lopid 600 mg a.c. b.i.d. 7. Humalog scale. Accu-Cheks before meals and at bedtime. Scale is 150 to 200, 2 units; 201 to 250, 4 units; 251 to 300, 6 units; 301 to 350, 8 units; 351 to 400, 10 units; more than 400 call. 8. Zestril 5 mg p.o. q.h.s. 9. Glucophage 500 mg p.o. b.i.d. 10. Toprol-XL 50 mg q.a.m. 11. Multivitamins 1 p.o. q.a.m. 12. Nitrostat 0.4 sublingual p.r.n. 13. Effient 10 mg p.o. q.h.s. 14. Hytrin 5 mg p.o. q.h.s. Once again, the patient will be discharged in a stable condition with guarded prognosis.
--- NOTE | 2016-08-07 14:56 | P.PN ---
Subjective Principal diagnosis: Chest pain This is a 81-year-old gentleman with known history of coronary artery disease who recently was in the hospital and underwent a cardiac catheterization by Dr. Watkins. He was found at that time to have critical stenosis involving the mid right coronary artery as well as borderline significant disease in the LAD. He underwent stenting of the RCA. Patient has done well since the stenting of the RCA. He presented to the hospital on this occasion with symptoms of chest discomfort. He was taken to the cardiac catheterization lab by Dr. Watkins and found to have a patent stent within the right coronary artery. 70% stenosis involving the mid LAD at the origin of the diuretic. Medical therapy was advised. Patient was seen and examined this morning, denies any further chest pain or difficulty in breathing. Arrangements are being made for possible rehab post discharge. Objective - Vital Signs Vital signs: Vital Signs Temp 97.5 F L 08/07/16 08:00 Pulse 98 08/07/16 08:00 Resp 18 08/07/16 08:00 BP 105/63 08/07/16 08:00 Pulse Ox 96 08/07/16 08:00 Intake & Output 08/06/16 08/07/16 08/07/16 18:59 06:59 18:59 Intake Total 360 Output Total 400 Balance -400 360 Weight 151.1 kg Intake: Oral 360 Output: Urine 400 Other: Voiding Method Bedside Commode Urinal Urinal # Voids 1 - Exam PHYSICAL EXAMINATION: HEENT: Head is atraumatic, normocephalic. Pupils equal, round. Neck is supple. There is no elevated jugular venous pressure. HEART EXAMINATION: Heart S1, S2 normal. No murmur or gallop heard. CHEST EXAMINATION: Lungs are clear to auscultation and precussion. No chest wall tenderness is noted on palpation or with deep breathing. ABDOMEN: Soft, obese, nontender. Bowel sounds are heard. No organomegaly noted. EXTREMITIES: 2+ peripheral pulses with trace evidence of peripheral edema and no calf tenderness noted. NEUROLOGIC patient is awake, alert and oriented -3. . - Labs CBC & Chem 7: 08/07/16 07:02 08/06/16 06:40 Labs: Abnormal Lab Results - Last 24 Hours (Table) 08/06/16 08/06/16 08/07/16 Range/Units 16:52 20:02 05:46 POC Glucose (mg/dL) 130 H 138 H 131 H (75-99) mg/dL 08/07/16 Range/Units 11:43 POC Glucose (mg/dL) 127 H (75-99) mg/dL Assessment and Plan (1) S/P cardiac cath Status: Acute (2) Chest pain Status: Acute (3) S/P right coronary artery (RCA) stent placement Status: Acute (4) Diabetes Status: Acute (5) HTN (hypertension) Status: Acute (6) Hyperlipemia Status: Acute Plan: From cardiology's perspective, patient may be discharged or transferred to rehab when cleared by primary. We will make sure he has a follow-up appointment in the office with Dr. Hendricks. DNP note has been reviewed, I agree with a documented findings and plan of care. Patient was seen and examined.
[2016-08-07 16:26] LABS: Glucose,Whole Blood 141 mg/dL (75-99)
[2016-08-07] MEDS ORDERED: ONDANSETRON 4 MG/2 ML VIAL IVP PRN (18:35)
[2016-08-07 20:46] LABS: Glucose,Whole Blood 131 mg/dL (75-99)
[2016-08-07] MEDS: ATORVASTATIN 40 MG TAB PO SCH (21:25)
[2016-08-07] MEDS: LISINOPRIL 5 MG TAB PO SCH (21:25)
[2016-08-07] MEDS: TERAZOSIN 5 MG CAP PO SCH (21:25)
[2016-08-07] MEDS: PRASUGREL 10 MG TAB PO SCH (21:26)
[2016-08-08 00:01] VITALS: RESP 16
[2016-08-08] MEDS: ACETAMINOPHEN TAB 325 MG TAB PO PRN ×2 (06:04→09:39)
[2016-08-08 07:48] LABS: Glucose,Whole Blood 132 mg/dL (75-99)
[2016-08-08] MEDS: MULTIVITAMINS, THERA 1 EACH TAB PO SCH (08:17)
[2016-08-08] MEDS: METOPROLOL SUCCINATE (ER) 50 MG TAB.ER.24H PO SCH (08:17)
[2016-08-08] MEDS: INSULIN LISPRO (humaLOG) 300 UNIT/3 ML VIAL SQ SCH (08:17)
[2016-08-08] MEDS: ASPIRIN 81 MG CHEW PO SCH (08:17)
[2016-08-08 08:36] VITALS: BP 105/51; PULSE 85; TEMP 97.5
== END 2016-08-08 11:13 | DRG 287 ==
LOC: EC 11:15 → 3OBS 12:45 → OBSVTOIN 08-06 08:11 → 6SEL 08-06 15:35 → 5MS5E 08-07 17:02
PROVIDERS: ADMIT Hospitalist; ATTEND Hospitalist
PROC: 4A023N7 Measurement of Cardiac Sampling and Pressure, Left Heart, Percutaneous Approach (ICD-10-PCS; principal; 2016-08-05 08:30)
PROC: B2111ZZ Fluoroscopy of Multiple Coronary Arteries using Low Osmolar Contrast (ICD-10-PCS; principal; 2016-08-05 08:30)
DX: I25.110 Atherosclerotic heart disease of native coronary artery with unstable angina pectoris (principal); E11.42 Type 2 diabetes mellitus with diabetic polyneuropathy; D63.8 Anemia in other chronic diseases classified elsewhere; Z68.41 Body mass index [BMI] 40.0-44.9, adult; E66.01 Morbid (severe) obesity due to excess calories; E78.5 Hyperlipidemia, unspecified; G89.29 Other chronic pain; I10 Essential (primary) hypertension; I25.2 Old myocardial infarction; I35.0 Nonrheumatic aortic (valve) stenosis; I70.0 Atherosclerosis of aorta; M10.9 Gout, unspecified; M19.90 Unspecified osteoarthritis, unspecified site; M21.372 Foot drop, left foot; N40.0 Benign prostatic hyperplasia without lower urinary tract symptoms; Z79.82 Long term (current) use of aspirin; Z79.84 Long term (current) use of oral hypoglycemic drugs; Z79.899 Other long term (current) drug therapy; Z82.49 Family history of ischemic heart disease and other diseases of the circulatory system; Z86.73 Personal history of transient ischemic attack (TIA), and cerebral infarction without residual deficits; Z87.891 Personal history of nicotine dependence; Z95.5 Presence of coronary angioplasty implant and graft; M54.5 Low back pain
CPT/HCPCS: 36415; 71020; 80048; 80053; 80061; 82550; 82553; 83036; 83735; 84484; 85025; 85049; 85610; 85730; 93005; 93458; 96374; 96375; 99291

== ENCOUNTER 2016-12-24 19:42 | Emergency (ER) | payer MEDICARE ==
--- NOTE | 2016-12-24 21:19 | ED ---
Lower Extremity Injury HPI - General Chief Complaint: Extremity Injury, Lower Stated Complaint: Foot /Lac Time Seen by Provider: 12/24/16 20:53 Source: patient, RN notes reviewed, old records reviewed Mode of arrival: EMS Limitations: no limitations - History of Present Illness Initial Comments: 81-year-old male presents emergency Department chief complaint of a laceration over his left first great toe. Patient reports that he has peripheral neuropathy. Denies any specific trauma to cause laceration. Reports that he must of hit his great toenail and it cracked. Patient states he is on blood thinners. He reports that his shoe and sock were full of Blood. Patient called EMS was brought to here. Patient is on Plavix. Patient reports he has diminished ROM of toes due to swelling chronicallly. He is wearing Flakito Hose stockings. - Related Data Home Medications Medication Instructions Recorded Confirmed Gemfibrozil [Lopid] 600 mg PO AC-BID 07/16/14 12/24/16 Lisinopril [Zestril] 5 mg PO HS 07/16/14 12/24/16 Terazosin [Hytrin] 5 mg PO HS 07/16/14 12/24/16 metFORMIN HCL [Glucophage] 500 mg PO BID 07/16/14 12/24/16 Exenatide Microspheres [Bydureon 2 mg SQ VIERA 05/20/16 12/24/16 Pen] Cranberry W/ Vitamin D3 1 tab PO DAILY 07/23/16 12/24/16 Metoprolol Succinate (ER) [Toprol 25 mg PO DAILY 07/23/16 12/24/16 XL] Multivit-Min/FA/Lycopen/Lutein 1 tab PO DAILY 07/23/16 12/24/16 [Centrum Silver Men Tablet] Atorvastatin [Lipitor] 40 mg PO HS 08/04/16 12/24/16 Cinnamon Bark [Cinnamon] 1,000 mg PO DAILY 08/04/16 12/24/16 Aspirin 81 mg PO DAILY 12/24/16 12/24/16 Cholecalciferol [Vitamin D3] 5,000 unit PO DAILY 12/24/16 12/24/16 Clopidogrel [Plavix] 75 mg PO HS 12/24/16 12/24/16 Famotidine [Pepcid] 40 mg PO DAILY 12/24/16 12/24/16 Previous Rx's Medication Instructions Recorded Nitroglycerin Sl Tabs [Nitrostat] 0.4 mg SUBLINGUAL Q5M PRN #25 tab 07/25/16 Cephalexin [Keflex] 500 mg PO Q8HR #40 cap 12/24/16 Allergies Allergy/AdvReac Type Severity Reaction Status Date / Time No Known Allergies Allergy Verified 12/24/16 20:44 Review of Systems ROS Statement: Those systems with pertinent positive or pertinent negative responses have been documented in the HPI. ROS Other: All systems not noted in ROS Statement are negative. Past Medical History Past Medical History: CVA/TIA, Diabetes Mellitus, Hyperlipidemia, Hypertension, Myocardial Infarction ([place]), Osteoarthritis (OA), Prostate Disorder Additional Past Medical History / Comment(s): arthritis, ENLARGED PROSTATE, TIA 2009,SINUS PROBLEMS, NEUROPATHY AND LT FOOT drop WEAKNESS /wears brace. healed left foot wounds {was seen prev at wound clinic - not any longer} Last Myocardial Infarction Date:: 07/23/16 History of Any Multi-Drug Resistant Organisms: None Reported Past Surgical History: Cholecystectomy, Heart Catheterization With Stent, Joint Replacement Additional Past Surgical History / Comment(s): colonoscopy, x2 knee replacements on rt knee Past Anesthesia/Blood Transfusion Reactions: No Reported Reaction Date of Last Stent Placement:: 07/23/2016 Past Psychological History: No Psychological Hx Reported Smoking Status: Former smoker - Past Family History Father Family Medical History: Cancer Additional Family Medical History / Comment(s): LUNG CANCER Mother Family Medical History: Hypertension, Osteoarthritis (OA) General Exam - General Exam Comments Initial Comments: 81-year-old male. No distress. Limitations: no limitations General appearance: alert, in no apparent distress Head exam: Present: atraumatic, normocephalic, normal inspection Eye exam: Present: normal appearance, PERRL, EOMI. Absent: scleral icterus, conjunctival injection, periorbital swelling ENT exam: Present: normal exam, mucous membranes moist Neck exam: Present: normal inspection. Absent: tenderness, meningismus, lymphadenopathy Respiratory exam: Present: normal lung sounds bilaterally. Absent: respiratory distress, wheezes, rales, rhonchi, stridor Cardiovascular Exam: Present: regular rate, normal rhythm, normal heart sounds. Absent: systolic murmur, diastolic murmur, rubs, gallop, clicks GI/Abdominal exam: Present: soft, normal bowel sounds. Absent: distended, tenderness, guarding, rebound, rigid Extremities exam: Present: normal inspection, full ROM, normal capillary refill. Absent: tenderness, pedal edema, joint swelling, calf tenderness Left Lower Leg exam: Present: normal inspection, full ROM, swelling (2 + pitting edema) Ankle exam: Present: swelling Foot/Toe exam: Present: swelling, nail avulsion, subungual hematoma (Patient has minor abrasion over distal tip of the great toe. Bleeding well controlled. Patient nail is black. ). Absent: normal inspection Neurovascular tendon exam: Present: no vascular compromise Gait: not tested/not observed Back exam: Present: normal inspection Neurological exam: Present: alert, oriented X3, CN II-XII intact Psychiatric exam: Present: normal affect, normal mood Skin exam: Present: warm, dry, intact, normal color. Absent: rash Course Vital Signs 12/24/16 12/24/16 12/24/16 19:43 21:30 22:27 Temperature 97.2 F L 97.6 F 98.3 F Pulse Rate 84 78 94 Respiratory 16 18 18 Rate Blood Pressure 123/58 145/93 101/69 O2 Sat by Pulse 99 98 97 Oximetry Medical Decision Making - Medical Decision Making Pt is a 81 year old male with left great toe abrasion and broken great toenail.Does not recall how this occured. Patient has multiple comorbidities, and has chronic edema in legs. Patient is adament about removing toenail. Discussed that he needs to see a supervisor gelatin plant for this as patient could likely have a poorer outcome related to this. Discussed I will start patient on keflex for infection prophylaxis. Patient wound was cleaned and covered with bacitracin and bandage. Given walking boot to go home in. Discussed seeing podiatry or PCP [facility] for wound recheck. Discussed return if area of redness occurs over dorsum of the foot. Patient and patient daughter understand treatment plan and will comply. - Radiology Data Radiology results: report reviewed Foot xray shows soft tissue swelling. no Fracutre or other abnormalities. Disposition Clinical Impression: Laceration of left great toe Disposition: HOME SELF-CARE Condition: Good Instructions: Ingrown Nail (ED), Abrasion (ED) Additional Instructions: Patient advised to change the dressing over the toe daily. Patient needs to follow-up with podiatry and primary care provider. Take antibiotics as prescribed. Return to emergency department if any alarming signs or symptoms occur. Prescriptions: Cephalexin [Keflex] 500 mg PO Q8HR #40 cap Referrals: Denis Cerrato MD [Primary Care Provider] - 1-2 days Angelo Summers DPM [STAFF PHYSICIAN] - 1-2 days Glenn Wallace DPM [STAFF PHYSICIAN] - 1-2 days Time of Disposition: 22:30
--- NOTE | 2016-12-24 21:29 | XR ---
EXAMINATION TYPE: XR foot complete LT DATE OF EXAM: 12/24/2016 COMPARISON: NONE HISTORY: Bleeding and pain TECHNIQUE: 3 views FINDINGS: There are plantar and Achilles calcaneal spurs. There is soft tissue swelling of the forefo ot. There is osteopenia. I see no fracture. There is spurring at the talonavicular joint. IMPRESSION: Calcaneal spurring. No fracture. Soft tissue swelling.
[2016-12-24 21:32] VITALS: RESP 18
[2016-12-24 22:28] VITALS: BP 101/69; PULSE 94; TEMP 98.3
[2016-12-24] MEDS ORDERED: CEPHALEXIN 500MG STARTER PACK 4 CAP BTL PO STA (22:53)
== END 2016-12-24 23:11 | disposition home or self-care (01) ==
LOC: EC 19:42
DX: S91.112A Laceration without foreign body of left great toe without damage to nail, initial encounter (principal); E11.9 Type 2 diabetes mellitus without complications; E78.5 Hyperlipidemia, unspecified; I10 Essential (primary) hypertension; I25.2 Old myocardial infarction; M19.90 Unspecified osteoarthritis, unspecified site; N42.9 Disorder of prostate, unspecified; Z86.73 Personal history of transient ischemic attack (TIA), and cerebral infarction without residual deficits; Z87.891 Personal history of nicotine dependence; Z79.82 Long term (current) use of aspirin; Z79.01 Long term (current) use of anticoagulants; Z79.84 Long term (current) use of oral hypoglycemic drugs; Z79.899 Other long term (current) drug therapy; W22.8XXA Striking against or struck by other objects, initial encounter
CPT/HCPCS: 99284

== ENCOUNTER 2017-10-04 13:22 | Inpatient (IN) | payer MEDICARE ==
[2017-10-04 15:47] LABS: Basophils # (A) 0.1 k/uL (0-0.2); Basophils % (A) 1 %; Eosinophils # (A) 0.3 k/uL (0-0.7); Eosinophils % (A) 4 %; HCT 37.6 % (39.0-53.0); HGB 12.2 gm/dL (13.0-17.5); Lymphocytes # (A) 1.8 k/uL (1.0-4.8); Lymphocytes % (A) 27 %; MCH 27.3 pg (25.0-35.0); MCHC 32.5 g/dL (31.0-37.0); MCV 83.9 fL (80.0-100.0); Mean Platelet Volume 6.6; Monocytes # (A) 0.5 k/uL (0-1.0); Monocytes % (A) 8 %; Neutrophils # (A) 3.8 k/uL (1.3-7.7); Neutrophils % (A) 57 %; Platelet Count 279 k/uL (150-450); Poikilocytosis Slight; RBC 4.48 m/uL (4.30-5.90); RDW 14.8 % (11.5-15.5); WBC 6.5 k/uL (3.8-10.6)
[2017-10-04 16:01] LABS: ALT 28 U/L (21-72); AST 20 U/L (17-59); Albumin 3.8 g/dL (3.5-5.0); Alkaline Phosphatase 51 U/L (38-126); Anion Gap 8 mmol/L; Blood Urea Nitrogen 31 mg/dL (9-20); Calcium 9.1 mg/dL (8.4-10.2); Carbon Dioxide 23 mmol/L (22-30); Chloride 109 mmol/L (98-107); Glucose 131 mg/dL (74-99); Potassium 4.5 mmol/L (3.5-5.1); Sodium 140 mmol/L (137-145); Total Bilirubin 0.7 mg/dL (0.2-1.3); Total Protein 6.3 g/dL (6.3-8.2)
--- NOTE | 2017-10-04 16:08 | ED ---
Skin/Abscess/FB HPI - General Source: patient, RN notes reviewed, old records reviewed Mode of arrival: wheelchair Limitations: no limitations <Karo Billingsley - Last Filed: 10/04/17 18:44> <Arturo Mcdonald - Last Filed: 10/04/17 18:55> - General Chief complaint: Skin/Abscess/Foreign Body Stated complaint: diabetic ulcers Time Seen by Provider: 10/04/17 15:50 - History of Present Illness Initial comments: This Patient is an 82-year-old male presents emergency department today with bilateral lower extremity swelling for the past week. Patient reports he's been "lazy" and has not been using his compression stockings. Patient reports that the swelling has been severe enough for it has broke the skin. He reports that his legs have been draining sanguinous fluid. Patient reports he has no chest pain or shortness breath. She denies any fever or chills. He reports that he said history of stroke and has diminished sensation over his lower extremities as well as decreased motor function. He does use a motorized wheelchair. Lives alone. (Karo Billingsley) - Related Data Home Medications Medication Instructions Recorded Confirmed Gemfibrozil [Lopid] 600 mg PO AC-BID 07/16/14 10/04/17 Terazosin [Hytrin] 5 mg PO HS 07/16/14 10/04/17 metFORMIN HCL [Glucophage] 500 mg PO BID 07/16/14 10/04/17 Cranberry W/ Vitamin D3 1 tab PO DAILY 07/23/16 10/04/17 Metoprolol Succinate (ER) [Toprol 50 mg PO DAILY 07/23/16 10/04/17 XL] Multivit-Min/FA/Lycopen/Lutein 1 tab PO DAILY 07/23/16 10/04/17 [Centrum Silver Men Tablet] Atorvastatin [Lipitor] 40 mg PO HS 08/04/16 10/04/17 Cinnamon Bark [Cinnamon] 1,000 mg PO DAILY 08/04/16 10/04/17 Aspirin 81 mg PO DAILY 12/24/16 10/04/17 Cholecalciferol [Vitamin D3] 5,000 unit PO HS 12/24/16 10/04/17 Clopidogrel [Plavix] 75 mg PO HS 12/24/16 10/04/17 Famotidine [Pepcid] 40 mg PO DAILY 12/24/16 10/04/17 Latanoprost [Xalatan 0.005%] 1 drop BOTH EYES HS 10/04/17 10/04/17 Lisinopril [Zestril] 10 mg PO HS 10/04/17 10/04/17 Previous Rx's Medication Instructions Recorded Nitroglycerin Sl Tabs [Nitrostat] 0.4 mg SUBLINGUAL Q5M PRN #25 tab 07/25/16 Allergies Allergy/AdvReac Type Severity Reaction Status Date / Time No Known Allergies Allergy Verified 10/04/17 17:09 Review of Systems ROS Other: All systems not noted in ROS Statement are negative. <Karo Billingsley - Last Filed: 10/04/17 18:44> ROS Other: All systems not noted in ROS Statement are negative. <Arturo Mcdonald - Last Filed: 10/04/17 18:55> ROS Statement: Those systems with pertinent positive or pertinent negative responses have been documented in the HPI. Past Medical History Past Medical History: CVA/TIA, Diabetes Mellitus, Hyperlipidemia, Hypertension, Myocardial Infarction ([place]), Osteoarthritis (OA), Prostate Disorder Additional Past Medical History / Comment(s): arthritis, ENLARGED PROSTATE, TIA 2009,SINUS PROBLEMS, NEUROPATHY AND LT FOOT drop WEAKNESS /wears brace. healed left foot wounds {was seen prev at wound clinic - not any longer} Last Myocardial Infarction Date:: 07/23/16 History of Any Multi-Drug Resistant Organisms: None Reported Past Surgical History: Cholecystectomy, Heart Catheterization With Stent, Joint Replacement Additional Past Surgical History / Comment(s): colonoscopy, x2 knee replacements on rt knee Past Anesthesia/Blood Transfusion Reactions: No Reported Reaction Date of Last Stent Placement:: 07/23/2016 Past Psychological History: No Psychological Hx Reported Smoking Status: Former smoker Past Alcohol Use History: None Reported Past Drug Use History: None Reported - Past Family History Father Family Medical History: Cancer Additional Family Medical History / Comment(s): LUNG CANCER Mother Family Medical History: Hypertension, Osteoarthritis (OA) <Karo Billingsley - Last Filed: 10/04/17 18:44> General Exam Limitations: no limitations General appearance: alert, in no apparent distress Head exam: Present: atraumatic, normocephalic, normal inspection Eye exam: Present: normal appearance, PERRL, EOMI. Absent: scleral icterus, conjunctival injection, periorbital swelling ENT exam: Present: normal exam, mucous membranes moist Neck exam: Present: normal inspection. Absent: tenderness, meningismus, lymphadenopathy Respiratory exam: Present: normal lung sounds bilaterally. Absent: respiratory distress, wheezes, rales, rhonchi, stridor Cardiovascular Exam: Present: regular rate, normal rhythm, systolic murmur. Absent: normal heart sounds, diastolic murmur, rubs, gallop, clicks Extremities exam: Present: full ROM, normal capillary refill, pedal edema (4+ pedal edema.), other (Patient has significant edema lower extremities where the skin is now torn open. Clear fluid seeping from the leg.). Absent: normal inspection, tenderness, joint swelling, calf tenderness Back exam: Present: normal inspection Neurological exam: Present: alert, oriented X3, CN II-XII intact Psychiatric exam: Present: normal affect, normal mood <Karo Billingsley - Last Filed: 10/04/17 18:44> <Arturo Mcdonald - Last Filed: 10/04/17 18:55> - General Exam Comments Initial Comments: Patient is an 82-year-old male. Alert and oriented. No distress. (Karo Billingsley) Course <Karo Billingsley - Last Filed: 10/04/17 18:44> <Arturo Mcdonald - Last Filed: 10/04/17 18:55> Vital Signs 10/04/17 14:11 Temperature 98.3 F Pulse Rate 76 Respiratory 18 Rate Blood Pressure 124/67 O2 Sat by Pulse 97 Oximetry - Reevaluation(s) Reevaluation #1: 10/04/17 18:54 PA supervision: I personally saw and examined the patient. I reviewed and agree with the PA findings including all diagnostic interpretations and treatment plans is written unless otherwise stated. Patient does demonstrate marked peripheral edema with open wounds some erythema seen to the left lower extremity. He also is complaining of decreased urine output. I did discuss the case with Dr. Og. Patient will be admitted (Arturo Mcdonald) Medical Decision Making - Lab Data Result diagrams: 10/04/17 15:35 10/04/17 15:35 Interpretation: no acute changes - Radiology Data Radiology results: report reviewed <Karo Billingsley - Last Filed: 10/04/17 18:44> - Lab Data Result diagrams: 10/04/17 15:35 10/04/17 15:35 - EKG Data -: EKG Interpreted by Me EKG shows normal: sinus rhythm (Sinus rhythm first degree AV block occasional PVC. The rate was 70 NM interval 214 QRS duration 92 QT since QTC 390/429) <Arturo Mcdonald - Last Filed: 10/04/17 18:55> - Medical Decision Making 82-year-old male with history of CVA and cardiac history presents today with bilateral external may swelling. Patient uses a motorized scooter. He has had increased swelling over bilateral shoulder many. Patient's labwork shows elevated BNP of 2020. As a chest pressure as well. Chest x-ray shows cardiomegaly but no acute cardio pulmonary processes. EKG completed. He denies any chest pain or other symptoms. He does have 4+ pitting edema. Patient was started on fluids, started on IV Lasix. Legs up and elevated. Patient's case was discussed with Dr. Vann. She agrees to admission. ( Karo Billingsley) - Lab Data Lab Results 10/04/17 10/04/17 10/04/17 Range/Units 15:35 15:35 16:00 WBC 6.5 (3.8-10.6) k/uL RBC 4.48 (4.30-5.90) m/uL Hgb 12.2 L (13.0-17.5) gm/dL Hct 37.6 L (39.0-53.0) % MCV 83.9 (80.0-100.0) fL MCH 27.3 (25.0-35.0) pg MCHC 32.5 (31.0-37.0) g/dL RDW 14.8 (11.5-15.5) % Plt Count 279 (150-450) k/uL Neutrophils % 57 % Lymphocytes % 27 % Monocytes % 8 % Eosinophils % 4 % Basophils % 1 % Neutrophils # 3.8 (1.3-7.7) k/uL Lymphocytes # 1.8 (1.0-4.8) k/uL Monocytes # 0.5 (0-1.0) k/uL Eosinophils # 0.3 (0-0.7) k/uL Basophils # 0.1 (0-0.2) k/uL Poikilocytosis Slight Sodium 140 (137-145) mmol/L Potassium 4.5 (3.5-5.1) mmol/L Chloride 109 H (98-107) mmol/L Carbon Dioxide 23 (22-30) mmol/L Anion Gap 8 mmol/L BUN 31 H (9-20) mg/dL Creatinine 0.70 (0.66-1.25) mg/dL Est GFR (CKD-EPI)AfAm >90 (>60 ml/min/1.73 sqM) Est GFR (CKD-EPI)NonAf 89 (>60 ml/min/1.73 sqM) Glucose 131 H (74-99) mg/dL Calcium 9.1 (8.4-10.2) mg/dL Total Bilirubin 0.7 (0.2-1.3) mg/dL AST 20 (17-59) U/L ALT 28 (21-72) U/L Alkaline Phosphatase 51 (38-126) U/L NT-Pro-B Natriuret Pep 2020 pg/mL Total Protein 6.3 (6.3-8.2) g/dL Albumin 3.8 (3.5-5.0) g/dL - Radiology Data Patient has history of CVA, diabetes, hyperlipidemia, hypertension, MIs, osteoarthritis. 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
--- NOTE | 2017-10-04 16:46 | XR ---
EXAMINATION TYPE: XR chest 2V DATE OF EXAM: 10/04/2017 COMPARISON: 08/04/2016 INDICATION: Pain TECHNIQUE: Frontal and lateral views of the chest are obtained. FINDINGS: The heart size is normal. The pulmonary vasculature is normal. The lungs are clear. IMPRESSION: 1. No acute pulmonary process.
[2017-10-04] MEDS ORDERED: FUROSEMIDE 10 MG/ML 4 ML VIAL IV STA (17:12)
[2017-10-04] MEDS ORDERED: HYDROcodone/APAP 5-325MG 1 EACH TAB PO PRN (18:46)
[2017-10-04] MEDS ORDERED: IBUPROFEN 400 MG TAB PO PRN (18:46)
[2017-10-04] MEDS ORDERED: ACETAMINOPHEN TAB 325 MG TAB PO PRN (18:46)
[2017-10-04] MEDS ORDERED: NALOXONE 0.4 MG/ML 1 ML VIAL IV PRN (18:46)
[2017-10-04] MEDS ORDERED: ONDANSETRON 4 MG/2 ML VIAL IVP PRN (18:46)
[2017-10-04] MEDS ORDERED: MORPHINE SULFATE 4 MG/ML SYRINGE IV PRN (18:46)
[2017-10-04] MEDS ORDERED: PIPERACILLIN-TAZOBACTAM 3.375 GM in DEXTROSE/WATER 1 50ML.BAG IVPB STA (18:50)
[2017-10-04] MEDS: FUROSEMIDE 10 MG/ML 4 ML VIAL IV SCH (20:33)
[2017-10-04] MEDS ORDERED: NITROGLYCERIN SL TABS 0.4 MG TAB SUBLINGUAL PRN (23:27)
--- NOTE | 2017-10-04 23:50 | P.HPIM ---
History of Present Illness H&P Date: 10/04/17 Chief Complaint: Bilateral leg swelling 82-year-old male with history of ischemic cardiomyopathy, diabetes mellitus type 2, peripheral neuropathy. Patient presented to the hospital due to no improvement in bilateral leg swelling with redness over his left leg concerned for acute infection. Patient reports chronic bilateral leg edema over the past year In worse over the past couple months. However over the past 1 month he has noticed redness and weeping oozing wounds over bilateral legs worse over the left leg. He started applying topical antibiotics [id number]. Patient lives alone and did not seek medical advise. He notes no improvement with this approach. He recognizes that he was supposed to wear compression stockings however he doesn' t feel comfortable with them he doesn't like them and he admits to be negligent and did not wear them. Today his daughter was visiting him and once she saw his wounds she insisted that he come and visit ER for further evaluation. He otherwise denies any chest pain or trouble breathing, denies any fevers chills nausea or vomiting, denies any abdominal pain, denies any difficulty breathing. Denies any new focal neurologic deficits. Patient denies any GI bleeding He reports history of 2 strokes in the past that resulted in weakness in his bilateral legs and inability to stand unassisted due to loss of balance. He ambulates using a electric scooter. He is requesting bariatric bed. In the ED patient was given diuretics and a dose of Zosyn. Review of Systems Pertinent positives as noted in HPI. All other systems were reviewed and are negative Past Medical History Past Medical History: CVA/TIA, Diabetes Mellitus, Hyperlipidemia, Hypertension, Myocardial Infarction ([place]), Osteoarthritis (OA), Prostate Disorder Additional Past Medical History / Comment(s): arthritis, ENLARGED PROSTATE, TIA 2008,SINUS PROBLEMS, NEUROPATHY AND LT FOOT drop WEAKNESS /wears brace. healed left foot wounds {was seen prev at wound clinic - not any longer} Last Myocardial Infarction Date:: 07/23/16 History of Any Multi-Drug Resistant Organisms: None Reported Past Surgical History: Cholecystectomy, Heart Catheterization With Stent, Joint Replacement Additional Past Surgical History / Comment(s): colonoscopy, x2 knee replacements on rt knee Past Anesthesia/Blood Transfusion Reactions: No Reported Reaction Date of Last Stent Placement:: 07/23/2016 Past Psychological History: No Psychological Hx Reported Smoking Status: Former smoker Past Alcohol Use History: None Reported Past Drug Use History: None Reported - Past Family History Father Family Medical History: Cancer Additional Family Medical History / Comment(s): LUNG CANCER Mother Family Medical History: Hypertension, Osteoarthritis (OA) Medications and Allergies Home Medications Medication Instructions Recorded Confirmed Type Gemfibrozil [Lopid] 600 mg PO AC-BID 07/16/14 10/04/17 History Terazosin [Hytrin] 5 mg PO HS 07/16/14 10/04/17 History metFORMIN HCL [Glucophage] 500 mg PO BID 07/16/14 10/04/17 History Cranberry W/ Vitamin D3 1 tab PO DAILY 07/23/16 10/04/17 History Metoprolol Succinate (ER) [Toprol 50 mg PO DAILY 07/23/16 10/04/17 History XL] Multivit-Min/FA/Lycopen/Lutein 1 tab PO DAILY 07/23/16 10/04/17 History [Centrum Silver Men Tablet] Nitroglycerin Sl Tabs [Nitrostat] 0.4 mg SUBLINGUAL Q5M PRN #25 tab 07/25/16 Rx Atorvastatin [Lipitor] 40 mg PO HS 08/04/16 10/04/17 History Cinnamon Bark [Cinnamon] 1,000 mg PO DAILY 08/04/16 10/04/17 History Aspirin 81 mg PO DAILY 12/24/16 10/04/17 History Cholecalciferol [Vitamin D3] 5,000 unit PO HS 12/24/16 10/04/17 History Clopidogrel [Plavix] 75 mg PO HS 12/24/16 10/04/17 History Famotidine [Pepcid] 40 mg PO DAILY 12/24/16 10/04/17 History Latanoprost [Xalatan 0.005%] 1 drop BOTH EYES HS 10/04/17 10/04/17 History Lisinopril [Zestril] 10 mg PO HS 10/04/17 10/04/17 History Allergies Allergy/AdvReac Type Severity Reaction Status Date / Time No Known Allergies Allergy Verified 10/04/17 17:09 Physical Exam Vitals: Vital Signs Temp Pulse Resp BP Pulse Ox 10/04/17 14:11 98.3 F 76 18 124/67 97 Intake and Output 10/04/17 10/04/1718 06:59 14:59 22:59 Other: Weight 136.078 kg Constitutional: No acute distress, conversant, pleasant Eyes: Anicteric sclerae, moist conjunctiva, no lid-lag Pupils equal round reactive to light ENMT: NC/AT Oropharynx clear, no erythema, exudates Neck: Supple, FROM, no masses, or JVD No carotid bruits No thyromegaly Lungs: Clear to auscultation Clear to percussion Normal respiratory effort, no accessory muscle use Cardiovascular: Heart regular in rate and rhythm, Systolic murmur positive over left sternal border, no gallops, or rubs +4 pitting peripheral edema bilaterally Abdominal: Soft, obese limiting exam Nontender, no guarding, rebound or rigidity Abdomen moving with respiration Normoactive bowel sounds No hepatomegaly, No splenomegaly No palpable mass No abdominal wall hernia noted Skin: Normal temperature, tone, texture, turgor No induration No subcutaneous nodules No rash, lesions Patient has weeping wounds over bilateral legs over the shins. Left looks worse than right with some slight erythema but no induration. Minimal discomfort to palpation, no deep ulcers, skin breakage over the left barraza with weeping clear fluid and serosanguineous Extremities: No digital cyanosis No clubbing Pedal pulses intact and symmetrical Radial pulses intact and symmetrical No calf tenderness Psychiatric: Alert and oriented to person, place and time Appropriate affect fair judgment Neuro Muscles Strength 3-4/5 in all 4 extremities Sensation to light touch is decreased over bilateral lower extremities Cranial nerves II-XII grossly intact No focal sensory deficits Lymphatics: no palpable cervical or supraclavicular , or inguinal lymph nodes Results CBC & Chem 7: 10/04/17 15:35 10/04/17 15:35 Labs: Abnormal Lab Results - Last 24 Hours (Table) 10/04/17 10/04/17 Range/Units 15:35 15:35 Hgb 12.2 L (13.0-17.5) gm/dL Hct 37.6 L (39.0-53.0) % Chloride 109 H (98-107) mmol/L BUN 31 H (9-20) mg/dL Glucose 131 H (74-99) mg/dL Assessment and Plan Assessment: 82-year-old male with history of ischemic cardiomyopathy, diabetes mellitus type 2, peripheral neuropathy. admitted to inpatient due to bilateral +4 leg swelling for IV diuresis , and cellulitis. Patient has been having progressively worsening bilateral leg swelling that has started over a year now but got worse over the past month or 2. Along with weeping wounds over his left leg for the past month that he's been trying to self treat at home with topical antibiotics without any improvement. He presented to the hospital today seeking further care. Plan: cellulitis of left leg bilateral severe leg swelling DM type 2, stable hypertension , stable ICMP CAD history of CVA peripheral neuropathy Obesity BPH DVT PPX , heparin sc TID patient received one dose of zosyn in the ED, continue with Keflex QID 500 mg IV diuresis , elevation of leg, susanna hose (compression stocking) , patient educated to elevate his legs when not mobile monitor electrolytes insulin sliding scale, hold oral hypoglycemic agents resume other home meds Surrogate decision-maker: ligia Cueto CODE STATUS:full code DVT prophylaxis: RN Discussed with: Patient, ER, RN Anticipated discharge: 48-[address]: [facility] home situation , patient lives alone A total of 70 minutes was spent on the care of this complex patient more than 50% of the time was spent in counseling and care coordination. I spoke with the patient daughter over the phone patient lives alone patient requesting bariatric bed
[2017-10-05] MEDS: HEPARIN SODIUM,PORCINE 5,000 UNIT/ML 1 ML VIAL SQ SCH ×3 (07:01→15:59)
[2017-10-05] MEDS: FUROSEMIDE 10 MG/ML 4 ML VIAL IV SCH ×3 (07:02→20:57)
[2017-10-05 07:12] LABS: Glucose,Whole Blood 155 mg/dL (75-99)
[2017-10-05] MEDS: INSULIN ASPART 100 UNIT/ML 1 ML 10 ML VIAL SQ SCH ×5 (07:22→21:41)
[2017-10-05] MEDS ORDERED: PANTOPRAZOLE 40 MG/10 ML VIAL IV SCH (09:00)
[2017-10-05] MEDS: ASPIRIN 81 MG PO SCH (09:57)
[2017-10-05] MEDS: FAMOTIDINE 20 MG TAB PO SCH (09:57)
[2017-10-05] MEDS: CEPHALEXIN 500 MG CAP PO SCH ×4 (09:57→21:34)
[2017-10-05] MEDS: METOPROLOL SUCCINATE (ER) 50 MG TAB.ER.24H PO SCH (09:57)
[2017-10-05] MEDS ORDERED: PANTOPRAZOLE 40 MG TABLET PO SCH (10:07)
[2017-10-05] MEDS: SODIUM CHLORIDE 0.9% 1,000 ML IV SCH ×2 (13:54→20:57)
--- NOTE | 2017-10-05 15:15 | P.PN ---
Subjective Progress Note Date: 10/05/17 Principal diagnosis: Bilateral leg swelling and wounds. Doing well, no overnight issues. Still having significant swelling in his legs. No chest pain or shortness of breath. No fevers or chills. No nausea or vomiting. Objective - Vital Signs Vital signs: Vital Signs Temp 97.8 F 10/05/17 13:21 Pulse 77 10/05/17 13:00 Resp 18 10/05/17 13:00 BP 136/99 10/05/17 13:00 Pulse Ox 98 10/05/17 13:00 Intake & Output 10/04/17 10/05/17 10/05/17 18:59 06:59 18:59 Output Total 1175 1800 Balance -1175 -1800 Weight 136.078 kg Output: Urine 1175 1800 - Exam Constitutional: No acute distress, conversant, pleasant Eyes:Anicteric sclerae, moist conjunctiva, no lid-lag, PERRLA, ENMT: Oropharynx clear, no erythema, exudates Neck: Supple, FROM, no masses, or JVD, No carotid bruits, No thyromegaly Lungs: Clear to auscultation, Clear to percussion, Normal respiratory effort, no accessory muscle use Cardiovascular: Heart regular in rate and rhythm, No murmurs, gallops, or rubs, 2+ peripheral edema Abdominal: Soft, Nontender, no guarding, rebound or rigidity, Normoactive bowel sounds, No hepatomegaly, No splenomegaly, No palpable mass Skin: Normal temperature, tone, texture, turgor, no induration, No subcutaneous nodules, No rash, lesions, No ulcers Extremities: No digital cyanosis, No clubbing, Pedal pulses intact and symmetrical, Radial pulses intact and symmetrical, No calf tenderness Psychiatric: Alert and oriented to person, place and time, appropriate affect, intact judgement Neuro: Muscles Strength 5/5 in all 4 extremities, Sensation to light touch grossly present throughout, Cranial nerves II-XII grossly intact, no focal sensory deficits - Labs CBC & Chem 7: 10/04/17 15:35 10/04/17 15:35 Labs: Abnormal Lab Results - Last 24 Hours (Table) 10/04/17 10/04/17 10/05/17 Range/Units 15:35 15:35 07:10 Hgb 12.2 L (13.0-17.5) gm/dL Hct 37.6 L (39.0-53.0) % Chloride 109 H (98-107) mmol/L BUN 31 H (9-20) mg/dL Glucose 131 H (74-99) mg/dL POC Glucose (mg/dL) 155 H (75-99) mg/dL Microbiology - Last 24 Hours (Table) 10/04/17 16:23 Gram Stain - Preliminary Leg - Left Wound Culture - Preliminary Assessment and Plan Plan: Cellulitis of left leg patient received one dose of zosyn in the ED, continue with Keflex QID 500 mg Bilateral severe leg swelling IV diuresis , elevation of leg when in bed Check echocardiogram to rule out CHF, he does have history of CAD. Chronic DM type 2, hypertension, CAD, history of CVA, peripheral neuropathy, Obesity, BPH All stable For diabetes will hold oral hypoglycemics, insulin sliding scale Resume home medications DVT PPX , heparin sc TID CODE STATUS:full code Discussed with: Patient Anticipated discharge: 1-[address]: home A total of 35 minutes was spent on the care of this complex patient more than 50% of the time was spent in counseling and care coordination.
[2017-10-05 21:05] LABS: Glucose,Whole Blood 167 mg/dL (75-99)
[2017-10-05] MEDS: LISINOPRIL 10 MG TAB PO SCH (21:33)
[2017-10-05] MEDS: CLOPIDOGREL 75 MG TAB PO SCH (21:33)
[2017-10-05] MEDS: CHOLECALCIFEROL 1,000 UNIT TAB PO SCH (21:33)
[2017-10-05] MEDS: LATANOPROST 0.005% OPHTH DROPS 2.5 ML BTL BOTH EYES SCH (21:33)
[2017-10-05] MEDS: ATORVASTATIN 40 MG TAB PO SCH (21:34)
[2017-10-06] MEDS: HEPARIN SODIUM,PORCINE 5,000 UNIT/ML 1 ML VIAL SQ SCH ×3 (01:31→16:23)
[2017-10-06] MEDS: FUROSEMIDE 10 MG/ML 4 ML VIAL IV SCH ×2 (03:43→12:30)
[2017-10-06 06:08] LABS: Glucose,Whole Blood 170 mg/dL (75-99)
[2017-10-06] MEDS: INSULIN ASPART 100 UNIT/ML 1 ML 10 ML VIAL SQ SCH ×4 (06:17→21:51)
[2017-10-06 08:05] LABS: Basophils # (A) 0.1 k/uL (0-0.2); Basophils % (A) 1 %; Eosinophils # (A) 0.2 k/uL (0-0.7); Eosinophils % (A) 3 %; HCT 39.5 % (39.0-53.0); HGB 13.1 gm/dL (13.0-17.5); Lymphocytes # (A) 1.5 k/uL (1.0-4.8); Lymphocytes % (A) 23 %; MCH 27.6 pg (25.0-35.0); MCHC 33.1 g/dL (31.0-37.0); MCV 83.6 fL (80.0-100.0); Mean Platelet Volume 6.8; Monocytes # (A) 0.6 k/uL (0-1.0); Monocytes % (A) 10 %; Neutrophils % (A) 61 %; Platelet Count 279 k/uL (150-450); RBC 4.73 m/uL (4.30-5.90); RDW 14.6 % (11.5-15.5); WBC 6.6 k/uL (3.8-10.6)
[2017-10-06 08:19] LABS: Calcium 9.3 mg/dL (8.4-10.2); Magnesium 1.8 mg/dL (1.6-2.3); Phosphorus 4.5 mg/dL (2.5-4.5); Potassium 4.2 mmol/L (3.5-5.1)
[2017-10-06] MEDS: CEPHALEXIN 500 MG CAP PO SCH ×4 (09:24→20:42)
[2017-10-06] MEDS: METOPROLOL SUCCINATE (ER) 50 MG TAB.ER.24H PO SCH (09:24)
[2017-10-06] MEDS: ASPIRIN 81 MG PO SCH (09:24)
[2017-10-06] MEDS: FAMOTIDINE 20 MG TAB PO SCH (09:24)
--- NOTE | 2017-10-06 11:40 | ECHOF ---
Referral Reason:chf MEASUREMENTS -------- HEIGHT: 182.9 cm WEIGHT: 149.2 kg BP: IVSd: 1.6 cm (0.6 - 1.1) LVIDd: 4.8 cm (3.9 - 5.3) LVPWd: 1.5 cm (0.6 - 1.1) IVSs: 2.2 cm LVIDs: 2.7 cm LVPWs: 2.2 cm Ao Diam: 3.7 cm (2.0 - 3.7) AV Cusp: 0.9 cm (1.5 - 2.6) LA Diam: 4.3 cm (2.7 - 3.8) MV EXCURSION: 14.447 mm (> 18.000) MV EF SLOPE: 88 mm/s (70 - 150) EPSS: 0.7 cm MV E Robert: 0.84 m/s MV DecT: 236 ms MV A Robert: 1.03 m/s MV E/A Ratio: 0.82 AV maxP.35 mmHg AV meanP.22 mmHg AR PHT: 360 ms RAP: 5.00 mmHg RVSP: 17.46 mmHg FINDINGS -------- Sinus rhythm. This was a technically difficult study with suboptimal views. The left ventricular size is normal. There is moderate concentric left ventricular hypertrophy. O verall left ventricular systolic function is low-normal with, an EF between 50 - 55 %. The right ventricle is normal in size and function. The left atrium is mildly dilated. The right atrium is normal in size. Lumason used There is moderate aortic valve sclerosis. There is mild aortic regurgitation. There is severe aor tic stenosis present. Peak/mean gradient across the Aortic Valve is 65.35mmHg / 45.22mmHg. Mild mitral annular calcification present. Mild mitral regurgitation is present. Mild tricuspid regurgitation present. There is no evidence of pulmonary hypertension. The right v entricular systolic pressure, as measured by Doppler, is 17.46mmHg. The pulmonic valve was not well visualized. The aortic root size is normal. There is no pericardial effusion. CONCLUSIONS -------- 1. Sinus rhythm. 2. This was a technically difficult study with suboptimal views. 3. The left ventricular size is normal. 4. There is moderate concentric left ventricular hypertrophy. 5. Overall left ventricular systolic function is low-normal with, an EF between 50 - 55 %. 6. The left atrium is mildly dilated. 7. Lumason used 8. There is moderate aortic valve sclerosis. 9. There is mild aortic regurgitation. 10. There is severe aortic stenosis present. 11. Peak/mean gradient across the Aortic Valve is 65.35mmHg / 45.22mmHg. 12. Mild mitral annular calcification present. 13. Mild mitral regurgitation is present. 14. Mild tricuspid regurgitation present. 15. There is no evidence of pulmonary hypertension. 16. The pulmonic valve was not well visualized. 17. The aortic root size is normal. 18. There is no pericardial effusion. RECONCILIATION SPECIALIST: Jackie Serrano RDCS
[2017-10-06 11:50] VITALS: BMI 47.2
--- NOTE | 2017-10-06 12:08 | P.PN ---
Subjective Progress Note Date: 10/06/17 Principal diagnosis: Bilateral leg swelling and wounds. Leg swelling is down, no sob, no cp. No fevers or chills. Still has a loo. Objective - Vital Signs Vital signs: Vital Signs Temp 96.4 F L 10/06/17 08:00 Pulse 93 10/06/17 08:00 Resp 18 10/06/17 08:00 BP 99/64 10/06/17 08:00 Pulse Ox 95 10/06/17 08:00 Intake & Output 10/05/17 10/06/17 10/06/17 18:59 06:59 18:59 Intake Total 240 236 Output Total 1800 2750 Balance -1560 -2750 236 Weight 149.5 kg 149.5 kg Intake: Oral 240 236 Output: Urine 1800 2750 Uretheral (Loo) 1000 Other: Voiding Method Indwelling Catheter Indwelling Catheter Indwelling Catheter - Exam Constitutional: No acute distress, conversant, pleasant Eyes:Anicteric sclerae, moist conjunctiva, no lid-lag, PERRLA, ENMT: Oropharynx clear, no erythema, exudates Neck: Supple, FROM, no masses, or JVD, No carotid bruits, No thyromegaly Lungs: Clear to auscultation, Clear to percussion, Normal respiratory effort, no accessory muscle use Cardiovascular: Heart regular in rate and rhythm, No murmurs, gallops, or rubs, 2+ peripheral edema Abdominal: Soft, Nontender, no guarding, rebound or rigidity, Normoactive bowel sounds, No hepatomegaly, No splenomegaly, No palpable mass Skin: Normal temperature, tone, texture, turgor, no induration, No subcutaneous nodules, No rash, lesions, No ulcers Extremities: No digital cyanosis, No clubbing, Pedal pulses intact and symmetrical, Radial pulses intact and symmetrical, No calf tenderness Psychiatric: Alert and oriented to person, place and time, appropriate affect, intact judgement Neuro: Muscles Strength 5/5 in all 4 extremities, Sensation to light touch grossly present throughout, Cranial nerves II-XII grossly intact, no focal sensory deficits - Labs CBC & Chem 7: 10/06/17 07:48 10/06/17 07:48 Labs: Abnormal Lab Results - Last 24 Hours (Table) 10/05/17 10/06/17 10/06/17 Range/Units 21:04 06:07 07:48 BUN 34 H (9-20) mg/dL Glucose 151 H (74-99) mg/dL POC Glucose (mg/dL) 167 H 170 H (75-99) mg/dL Microbiology - Last 24 Hours (Table) 10/04/17 16:23 Gram Stain - Preliminary Leg - Left Wound Culture - Preliminary Gram Neg Bacilli Group D Enterococcus Assessment and Plan Plan: Cellulitis of left leg Wound culture growing gram-negative bacilli in addition to group D enterococcus , awaiting final ID and sensitivities Patient received one dose of zosyn in the ED, continue with Keflex QID 500 mg Bilateral severe leg swelling, 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 Chronic DM type 2, hypertension, CAD, history of CVA, peripheral neuropathy, Obesity, BPH All stable For diabetes will hold oral hypoglycemics, insulin sliding scale Resume home medications DVT PPX , heparin sc TID CODE STATUS:full code Discussed with: Patient Anticipated discharge: 1-[address]: home A total of 35 minutes was spent on the care of this complex patient more than 50% of the time was spent in counseling and care coordination.
[2017-10-06] MEDS ORDERED: FUROSEMIDE 10 MG/ML 2 ML VIAL IV ONE (12:09)
[2017-10-06 16:44] LABS: Glucose,Whole Blood 167 mg/dL (75-99)
[2017-10-06 17:10] LABS: Glucose,Whole Blood 149 mg/dL (75-99)
[2017-10-06] MEDS ORDERED: MORPHINE ORAL SOLN 10 MG/5 ML CUP PO PRN (19:25)
[2017-10-06] MEDS: SODIUM CHLORIDE 0.9% 1,000 ML IV SCH (20:33)
[2017-10-06] MEDS: ATORVASTATIN 40 MG TAB PO SCH (20:41)
[2017-10-06] MEDS: CHOLECALCIFEROL 1,000 UNIT TAB PO SCH (20:41)
[2017-10-06] MEDS: LATANOPROST 0.005% OPHTH DROPS 2.5 ML BTL BOTH EYES SCH (20:42)
[2017-10-06] MEDS: CLOPIDOGREL 75 MG TAB PO SCH (20:42)
[2017-10-06] MEDS: LISINOPRIL 10 MG TAB PO SCH (20:42)
[2017-10-06 20:52] LABS: Glucose,Whole Blood 211 mg/dL (75-99)
[2017-10-07] MEDS: HEPARIN SODIUM,PORCINE 5,000 UNIT/ML 1 ML VIAL SQ SCH ×4 (01:21→23:17)
[2017-10-07 06:01] LABS: Glucose,Whole Blood 155 mg/dL (75-99)
[2017-10-07] MEDS: INSULIN ASPART 100 UNIT/ML 1 ML 10 ML VIAL SQ SCH ×4 (06:31→21:59)
[2017-10-07 07:33] LABS: Calcium 8.8 mg/dL (8.4-10.2); Magnesium 1.8 mg/dL (1.6-2.3); Potassium 4.3 mmol/L (3.5-5.1)
[2017-10-07] MEDS: CEPHALEXIN 500 MG CAP PO SCH (08:51)
[2017-10-07] MEDS: ASPIRIN 81 MG PO SCH (08:51)
[2017-10-07] MEDS: FAMOTIDINE 20 MG TAB PO SCH (08:51)
[2017-10-07] MEDS ORDERED: FUROSEMIDE 10 MG/ML 4 ML VIAL IV STA (09:41)
--- NOTE | 2017-10-07 09:41 | P.CRDCN ---
History of Present Illness Consult date: 10/07/17 Requesting physician: Radha Morris Consult reason: congestive heart failure Chief complaint: Bilateral leg swelling and redness History of present illness: This is a pleasant 82-year-old gentleman who follows regularly with Dr. Hendricks in the office. He has known history of coronary artery disease, for which she has underwent stent placements. Most recent stent placement was a year ago in July. Patient also has history of diabetes, hypertension, hyperlipidemia, obesity, he presents to the hospital with symptoms of bilateral lower extremity swelling and redness. Apparently this has been progressively getting worse over some time now, his daughter went to his house and noticed them, recommended he come to the emergency room for further evaluation. According to the patient overall he's been feeling quite well, he denies any symptoms of shortness of breath. No chest discomfort. Blood pressure on arrival here 124/60 with a heart rate in the 70s, 97% on room air. Afebrile. Blood pressure this morning 132/70 with a heart rate in the 80s, 99% on room air. Sodium 138, potassium 4.3, BUN 43, creatinine 1.0, magnesium 1.8. White blood cell count 6.6, hemoglobin 13.1, platelet count 279. BNP level 2020 . Troponin 0.013. Upon review of the monitor strips, patient is noted at times to have sinus pauses, this occurs during sleeping times, it's very likely secondary to sleep apnea. During his waking hours, patient does not have any evidence of pauses, he does have an occasional PVC noted. Chest x-ray did not reveal any acute process. A cardiogram with Doppler study revealed an ejection fraction of 50-55%. Severe aortic stenosis noted. 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, past gout bilateral feet, arthritis multiple joints, past lower back pain, DJD, gallstone pancreatitis-surgery, BPH , bilateral glaucoma, R eye small cataract Last Myocardial Infarction Date:: 07/23/16 History of Any Multi-Drug Resistant Organisms: None Reported Past Surgical History: Appendectomy, Cholecystectomy, Heart Catheterization, Heart Catheterization With Stent, Joint Replacement, Tonsillectomy Additional Past Surgical History / Comment(s): Colonoscopies/polypectomies, x2 knee replacements on rt knee, L eye cataract removal, I&D bilateral feet, L mastoid surgery twice/ages 4 and 9yrs. Past Anesthesia/Blood Transfusion Reactions: No Reported Reaction Date of Last Stent Placement:: 07/24/2016 Smoking Status: Former smoker - Past Family History Father Family Medical History: Cancer Additional Family Medical History / Comment(s): LUNG CANCER/ father was a heavy smoker. Mother Family Medical History: Hypertension, Osteoarthritis (OA) Medications and Allergies Home Medications Medication Instructions Recorded Confirmed Type Gemfibrozil [Lopid] 600 mg PO AC-BID 07/16/14 10/04/17 History Terazosin [Hytrin] 5 mg PO HS 07/16/14 10/04/17 History metFORMIN HCL [Glucophage] 500 mg PO BID 07/16/14 10/04/17 History Cranberry W/ Vitamin D3 1 tab PO DAILY 07/23/16 10/04/17 History Metoprolol Succinate (ER) [Toprol 50 mg PO DAILY 07/23/16 10/04/17 History XL] Multivit-Min/FA/Lycopen/Lutein 1 tab PO DAILY 07/23/16 10/04/17 History [Centrum Silver Men Tablet] Nitroglycerin Sl Tabs [Nitrostat] 0.4 mg SUBLINGUAL Q5M PRN #25 tab 07/25/16 Rx Atorvastatin [Lipitor] 40 mg PO HS 08/04/16 10/04/17 History Cinnamon Bark [Cinnamon] 1,000 mg PO DAILY 08/04/16 10/04/17 History Aspirin 81 mg PO DAILY 12/24/16 10/04/17 History Cholecalciferol [Vitamin D3] 5,000 unit PO HS 12/24/16 10/04/17 History Clopidogrel [Plavix] 75 mg PO HS 12/24/16 10/04/17 History Famotidine [Pepcid] 40 mg PO DAILY 12/24/16 10/04/17 History Latanoprost [Xalatan 0.005%] 1 drop BOTH EYES HS 10/04/17 10/04/17 History Lisinopril [Zestril] 10 mg PO HS 10/04/17 10/04/17 History Allergies Allergy/AdvReac Type Severity Reaction Status Date / Time No Known Allergies Allergy Verified 10/04/17 17:09 Physical Exam Vitals: Vital Signs Temp Pulse Resp BP Pulse Ox 10/07/17 08:00 97 F L 84 16 132/70 99 10/07/17 04:00 97.1 F L 82 17 117/58 98 10/07/17 00:00 97.1 F L 79 17 112/55 94 L 10/06/17 20:00 97.1 F L 77 17 113/49 96 10/06/17 16:00 96.9 F L 73 16 104/61 96 10/06/17 12:00 72 18 98/53 98 Intake and Output 10/06/17 10/07/17 10/07/17 22:59 06:59 14:59 Intake Total 650 Output Total 1000 225 Balance -1000 -225 650 Intake: Oral 650 Output: Urine 1000 225 Other: Voiding Method Indwelling Catheter Indwelling Catheter Indwelling Catheter # Voids 1 PHYSICAL EXAMINATION: GENERAL: 82-year-old gentleman in no acute distress at the time of my examination HEENT: Head is atraumatic, normocephalic. Pupils equal, round. Sclera anicteric. Conjunctiva are clear. Mucous membranes of the mouth are moist. Neck is supple. There is no elevated jugular venous pressure. No carotid bruit is heard. HEART EXAMINATION: Heart S1 no audible systolic ejection murmur suggestive of severe aortic stenosis is noted. CHEST EXAMINATION: Lungs are clear to auscultation and precussion. No chest wall tenderness is noted on palpation or with deep breathing. ABDOMEN: Soft, obese, nontender. Bowel sounds are heard. No organomegaly noted. EXTREMITIES: 1+ peripheral pulses with 2-3+ evidence of peripheral edema, bilateral redness noted open ulceration noted to the left barraza . NEUROLOGIC patient is awake, alert and oriented X3. . Results 10/06/17 07:48 10/07/17 06:40 Comprehensive Metabolic Panel 10/07/17 Range/Units 06:40 Sodium 138 (137-145) mmol/L Potassium 4.3 (3.5-5.1) mmol/L Chloride 105 (98-107) mmol/L Carbon Dioxide 24 (22-30) mmol/L BUN 43 H (9-20) mg/dL Creatinine 1.03 (0.66-1.25) mg/dL Glucose 143 H (74-99) mg/dL Calcium 8.8 (8.4-10.2) mg/dL Current Medications Generic Name Dose Route Start Last Admin Trade Name Freq PRN Reason Stop Dose Admin Acetaminophen 650 mg 10/04/17 18:46 Tylenol Tab PO Q6HR PRN Mild Pain or Fever > 100.5 Hydrocodone Bitart/Acetaminophen 1 each 10/04/17 18:46 Normal 5-325 PO Q4HR PRN Moderate Pain Aspirin 81 mg 10/05/17 09:00 10/07/17 08:51 Aspirin PO 81 mg DAILY JACOBY Administration Atorvastatin Calcium 40 mg 10/05/17 21:00 10/06/17 20:41 Lipitor PO 40 mg HS JACOBY Administration Cephalexin 500 mg 10/05/17 09:00 10/07/17 08:51 Keflex PO 500 mg QID JACOBY Administration Cholecalciferol 5,000 unit 10/05/17 21:00 10/06/17 20:41 Vitamin D3 PO 5,000 unit HS JACOBY Administration Clopidogrel Bisulfate 75 mg 10/05/17 21:00 10/06/17 20:42 Plavix PO 75 mg HS JACOBY Administration Famotidine 40 mg 10/05/17 09:00 10/07/17 08:51 Pepcid PO 40 mg DAILY JACOBY Administration Heparin Sodium (Porcine) 5,000 unit 10/05/17 00:00 10/07/17 08:51 Heparin SQ 5,000 unit Q8HR JACBOY Administration Sodium Chloride 1,000 mls @ 20 mls/hr 10/04/17 19:00 10/06/17 20:33 Saline 0.9% IV Not Given .Q24H [facility] Ibuprofen 400 mg 10/04/17 18:46 Motrin PO Q6HR PRN Mild Pain or Fever > 100.5 Insulin Aspart 0 unit 10/05/17 07:30 10/07/17 06:31 Novolog SQ Not Given ACHS [facility] Protocol Latanoprost 1 drops 10/05/17 21:00 10/06/17 20:42 Xalatan 0.005% BOTH EYES 1 drops HS JACOBY Administration Lisinopril 10 mg 10/05/17 21:00 10/06/17 20:42 Zestril PO 10 mg HS JACOBY Administration Metoprolol Succinate 50 mg 10/05/17 09:00 10/06/17 09:24 Toprol Xl PO 50 mg DAILY JACOBY Administration Morphine Sulfate 12 mg 10/06/17 19:25 Morphine Oral Dee 2mg/Ml PO Q4HR PRN Severe Pain Naloxone HCl 0.2 mg 10/04/17 18:46 Narcan IV Q2M PRN Opioid Reversal Nitroglycerin 0.4 mg 10/04/17 23:27 Nitrostat SUBLINGUAL Q5M PRN Chest Pain Ondansetron HCl 4 mg 10/04/17 18:46 Zofran IVP Q8HR PRN Nausea And Vomiting Intake and Output 10/06/17 10/07/17 10/07/17 22:59 06:59 14:59 Intake Total 650 Output Total 1000 225 Balance -1000 -225 650 Intake: Oral 650 Output: Urine 1000 225 Other: Voiding Method Indwelling Catheter Indwelling Catheter Indwelling Catheter # Voids 1 10/06/17 07:48 10/07/17 06:40 EKG Interpretations (text) EKG shows a normal sinus rhythm with first-degree AV block, nonspecific ST-T wave changes and occasional PVC. Assessment and Plan Plan: Assessment and plan #1 bilateral leg swelling with possible bilateral cellulitis. #2 known history of coronary artery disease with prior stent placements #3 diabetes #4 hypertension #5 hyperlipidemia #6 obesity #7 severe aortic stenosis #8 chronic congestive heart failure with no evidence of acute exacerbation. Plan Echocardiogram with Doppler study was performed which revealed a normal ejection fraction. Severe aortic stenosis noted. Patient did receive one time IV dose of Lasix in the emergency room, we will give additional IV dose initiated dose of by mouth Lasix. Resume the patient's metoprolol, lisinopril, Plavix, aspirin, and Lipitor. He has also been initiated on antibiotics for cellulitis. Patient was also noted to have pauses during sleep time, recommend sleep apnea evaluation. We will also obtain Dr. Hendricks's office notes. Further recommendations to follow. DNP note has been reviewed, I agree with a documented findings and plan of care. Patient was seen and examined.
--- NOTE | 2017-10-07 10:05 | P.PN ---
Subjective Progress Note Date: 10/07/17 Principal diagnosis: Bilateral leg swelling and wounds. Telemetry shows showing frequent pauses during patient's sleep. Nurses reported that patient was snoring during these episodes. His heart rate went down to as low as 20s last night. Patient was asymptomatic during these episodes. He denied having chest pain, shortness of breath, dizziness or palpitations. Objective - Vital Signs Vital signs: Vital Signs Temp 97 F L 10/07/17 08:00 Pulse 84 10/07/17 08:00 Resp 16 10/07/17 08:00 BP 132/70 10/07/17 08:00 Pulse Ox 99 10/07/17 08:00 Intake & Output 10/06/17 10/07/17 10/07/17 18:59 06:59 18:59 Intake Total 1236 650 Output Total 700 525 Balance 536 -525 650 Weight 149.5 kg Intake: Oral 1236 650 Output: Urine 700 525 Other: Voiding Method Indwelling Catheter Indwelling Catheter Indwelling Catheter # Voids 1 - Exam Constitutional: No acute distress, conversant, pleasant Eyes:Anicteric sclerae, moist conjunctiva, no lid-lag, PERRLA, ENMT: Oropharynx clear, no erythema, exudates Neck: Supple, FROM, no masses, or JVD, No carotid bruits, No thyromegaly Lungs: Clear to auscultation, Clear to percussion, Normal respiratory effort, no accessory muscle use Cardiovascular: Heart regular in rate and rhythm, No murmurs, gallops, or rubs, 2+ peripheral edema Abdominal: Soft, Nontender, no guarding, rebound or rigidity, Normoactive bowel sounds, No hepatomegaly, No splenomegaly, No palpable mass Skin: Normal temperature, tone, texture, turgor, no induration, No subcutaneous nodules, No rash, lesions, No ulcers Extremities: No digital cyanosis, No clubbing, Pedal pulses intact and symmetrical, Radial pulses intact and symmetrical, No calf tenderness Psychiatric: Alert and oriented to person, place and time, appropriate affect, intact judgement Neuro: Muscles Strength 5/5 in all 4 extremities, Sensation to light touch grossly present throughout, Cranial nerves II-XII grossly intact, no focal sensory deficits - Labs CBC & Chem 7: 10/06/17 07:48 10/07/17 06:40 Labs: Abnormal Lab Results - Last 24 Hours (Table) 10/06/17 10/06/17 10/06/17 Range/Units 11:53 17:08 20:49 BUN (9-20) mg/dL Glucose (74-99) mg/dL POC Glucose (mg/dL) 167 H 149 H 211 H (75-99) mg/dL 10/07/17 10/07/17 Range/Units 06:00 06:40 BUN 43 H (9-20) mg/dL Glucose 143 H (74-99) mg/dL POC Glucose (mg/dL) 155 H (75-99) mg/dL Microbiology - Last 24 Hours (Table) 10/04/17 16:23 Gram Stain - Preliminary Leg - Left Wound Culture - Preliminary Gram Neg Bacilli Enterococcus faecalis Assessment and Plan Plan: Cellulitis of left leg Wound culture growing gram-negative bacilli in addition to enterococcus sensitive to penicillin Continue with Keflex QID 500 mg Bilateral severe leg swelling, 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 Frequent pauses during sleep Likely secondary to obstructive sleep apnea Outpatient sleep study Chronic DM type 2, hypertension, CAD, history of CVA, peripheral neuropathy, Obesity, BPH All stable For diabetes will hold oral hypoglycemics, insulin sliding scale Resume home medications DVT PPX , heparin sc TID CODE STATUS:full code Discussed with: Patient Anticipated discharge: 1-[address]: home A total of 35 minutes was spent on the care of this complex patient more than 50% of the time was spent in counseling and care coordination.
[2017-10-07] MEDS: METOPROLOL SUCCINATE (ER) 50 MG TAB.ER.24H PO SCH (10:21)
[2017-10-07] MEDS: AMOXIC-POT CLAV 875-125MG 1 EACH TAB PO SCH ×2 (10:28→20:31)
[2017-10-07 11:46] LABS: Glucose,Whole Blood 181 mg/dL (75-99)
[2017-10-07 16:32] LABS: Glucose,Whole Blood 218 mg/dL (75-99)
[2017-10-07] MEDS: FUROSEMIDE 40 MG TAB PO SCH (16:37)
[2017-10-07] MEDS: CHOLECALCIFEROL 1,000 UNIT TAB PO SCH (20:30)
[2017-10-07] MEDS: CLOPIDOGREL 75 MG TAB PO SCH (20:30)
[2017-10-07] MEDS: LATANOPROST 0.005% OPHTH DROPS 2.5 ML BTL BOTH EYES SCH (20:30)
[2017-10-07] MEDS: ATORVASTATIN 40 MG TAB PO SCH (20:31)
[2017-10-07] MEDS: LISINOPRIL 10 MG TAB PO SCH (20:31)
[2017-10-07] MEDS: SODIUM CHLORIDE 0.9% 1,000 ML IV SCH (20:31)
[2017-10-07 21:02] LABS: Glucose,Whole Blood 172 mg/dL (75-99)
[2017-10-08 06:14] LABS: Glucose,Whole Blood 157 mg/dL (75-99)
[2017-10-08] MEDS: INSULIN ASPART 100 UNIT/ML 1 ML 10 ML VIAL SQ SCH ×2 (06:14→13:08)
[2017-10-08 06:24] LABS: Basophils # (A) 0.1 k/uL (0-0.2); Basophils % (A) 1 %; Eosinophils # (A) 0.2 k/uL (0-0.7); Eosinophils % (A) 4 %; HCT 35.2 % (39.0-53.0); HGB 11.7 gm/dL (13.0-17.5); Lymphocytes # (A) 1.4 k/uL (1.0-4.8); Lymphocytes % (A) 25 %; MCH 27.6 pg (25.0-35.0); MCHC 33.2 g/dL (31.0-37.0); MCV 83.1 fL (80.0-100.0); Mean Platelet Volume 6.9; Monocytes # (A) 0.6 k/uL (0-1.0); Monocytes % (A) 10 %; Neutrophils # (A) 3.1 k/uL (1.3-7.7); Neutrophils % (A) 56 %; Platelet Count 238 k/uL (150-450); RBC 4.23 m/uL (4.30-5.90); RDW 14.7 % (11.5-15.5); WBC 5.5 k/uL (3.8-10.6)
[2017-10-08 06:50] LABS: Magnesium 1.9 mg/dL (1.6-2.3); Phosphorus 4.5 mg/dL (2.5-4.5); Potassium 4.2 mmol/L (3.5-5.1)
[2017-10-08 09:51] VITALS: TEMP 97.5
--- NOTE | 2017-10-08 10:17 | P.DS ---
Providers Date of admission: 10/04/17 18:46 Expected date of discharge: 10/08/17 Attending physician: Laurence Harmon DO Consults: 10/06/17 12:04 Consult Physician Routine Consulting Provider: Jadon Hickey Consult Reason/Comments: chf, Do you want consulting provider notified?: Yes Primary care physician: Denis [facility] Course: 82-year-old male with history of ischemic cardiomyopathy, diabetes mellitus type 2, peripheral neuropathy presented to the hospital due to worsening bilateral leg swelling with redness and skin sloughing over his left leg. Patient reported chronic bilateral leg edema over the past year but it got worse over the past couple months. Over the last 2-3 weeks he noticed redness and weeping oozing wounds over bilateral legs worse over the left leg. He denied any pain because according to him he cannot feel his legs. He started applying topical antibiotics [id number] on the wounds. However he noted no improvement with this approach. He recognizes that he was supposed to wear compression stockings however he doesn't feel comfortable with them, didn't like them and was not compliant with wearing them. When his daughter was visiting him, she saw his wounds and she insisted that he come to the ER for further evaluation. He otherwise denies any chest pain or trouble breathing, denies any fevers chills nausea or vomiting, denies any abdominal pain, denies any difficulty breathing. Denies any new focal neurologic deficits. 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 He ambulates using a electric scooter. In the ED patient was extensively evaluated, he did not have leukocytosis or fevers. His blood pressure was was given diuretics and a dose of Zosyn. Subsequently was started on Augmentin. Wound cultures were obtained from the left lower extremity wounds and those grew pseudomonas and enterococcus. Troponin was negative but proBNP came back elevated at 2000. The clinical picture was consistent with acute exacerbation of congestive heart failure. He had an echocardiogram which showed normal EF. Patient was started on diuresis with Lasix IV 40 mg twice a day. The swelling in his legs improved significantly with that. His legs wounds improved as well. Patient was evaluated by cardiology who concurred with the management. At nighttime during the hospitalization his heart rate dropped to as low as 20s and he was having frequent pauses, cardiology recommended sleep evaluation to rule out obstructive sleep apnea. Today patient is feeling better and will be discharged home in a stable condition. He was instructed to follow-up with his primary care physician and to have a sleep study, outpatient. Discharge diagnoses Acute exacerbation of congestive heart failure with preserved ejection fraction Suspected obstructive sleep apnea Bilateral legs cellulitis Patient Condition at Discharge: Stable Plan - Discharge Summary Discharge Rx Participant: No New Discharge Prescriptions: New Ciprofloxacin HCl 500 mg PO BID 5 Days #6 tab Furosemide [Lasix] 40 mg PO DAILY #30 tab Continue Terazosin [Hytrin] 5 mg PO HS metFORMIN HCL [Glucophage] 500 mg PO BID Gemfibrozil [Lopid] 600 mg PO AC-BID Multivit-Min/FA/Lycopen/Lutein [Centrum Silver Men Tablet] 1 tab PO DAILY Metoprolol Succinate (ER) [Toprol XL] 50 mg PO DAILY Cranberry W/ Vitamin D3 1 tab PO DAILY Nitroglycerin Sl Tabs [Nitrostat] 0.4 mg SUBLINGUAL Q5M PRN #25 tab PRN Reason: Chest Pain Cinnamon Bark [Cinnamon] 1,000 mg PO DAILY Atorvastatin [Lipitor] 40 mg PO HS Aspirin 81 mg PO DAILY Cholecalciferol [Vitamin D3] 5,000 unit PO HS Clopidogrel [Plavix] 75 mg PO HS Famotidine [Pepcid] 40 mg PO DAILY Lisinopril [Zestril] 10 mg PO HS Latanoprost [Xalatan 0.005%] 1 drop BOTH EYES HS Discharge Medication List Gemfibrozil [Lopid] 600 mg PO AC-BID 07/16/14 [History] Terazosin [Hytrin] 5 mg PO HS 07/16/14 [History] metFORMIN HCL [Glucophage] 500 mg PO BID 07/16/14 [History] Cranberry W/ Vitamin D3 1 tab PO DAILY 07/23/16 [History] Metoprolol Succinate (ER) [Toprol XL] 50 mg PO DAILY 07/23/16 [History] Multivit-Min/FA/Lycopen/Lutein [Centrum Silver Men Tablet] 1 tab PO DAILY [History] Nitroglycerin Sl Tabs [Nitrostat] 0.4 mg SUBLINGUAL Q5M PRN #25 tab 07/25/16 [Rx ] Atorvastatin [Lipitor] 40 mg PO HS 08/04/16 [History] Cinnamon Bark [Cinnamon] 1,000 mg PO DAILY 08/04/16 [History] Aspirin 81 mg PO DAILY 12/24/16 [History] Cholecalciferol [Vitamin D3] 5,000 unit PO HS 12/24/16 [History] Clopidogrel [Plavix] 75 mg PO HS 12/24/16 [History] Famotidine [Pepcid] 40 mg PO DAILY 12/24/16 [History] Latanoprost [Xalatan 0.005%] 1 drop BOTH EYES HS 10/04/17 [History] Lisinopril [Zestril] 10 mg PO HS 10/04/17 [History] Ciprofloxacin HCl 500 mg PO BID 5 Days #6 tab 10/08/17 [Rx] Furosemide [Lasix] 40 mg PO DAILY #30 tab 10/08/17 [Rx] Follow up Appointment(s)/Referral(s): Denis Cerrato MD [Primary Care Provider] - 1-2 days [facility], [NON-STAFF] -
[2017-10-08] MEDS: AMOXIC-POT CLAV 875-125MG 1 EACH TAB PO SCH (10:22)
[2017-10-08] MEDS: ASPIRIN 81 MG PO SCH (10:22)
[2017-10-08] MEDS: FUROSEMIDE 40 MG TAB PO SCH (10:22)
[2017-10-08] MEDS: FAMOTIDINE 20 MG TAB PO SCH (10:22)
[2017-10-08] MEDS: METOPROLOL SUCCINATE (ER) 50 MG TAB.ER.24H PO SCH (10:23)
[2017-10-08] MEDS: HEPARIN SODIUM,PORCINE 5,000 UNIT/ML 1 ML VIAL SQ SCH (10:35)
[2017-10-08 11:45] LABS: Glucose,Whole Blood 165 mg/dL (75-99)
[2017-10-08 13:20] VITALS: BP 115/56; PULSE 73; RESP 18
--- NOTE | 2017-10-08 13:37 | P.PN ---
Subjective Progress Note Date: 10/08/17 Principal diagnosis: CHF, cellulitis This a pleasant 82-year-old gentleman who follows regularly with next to him in the office. He has a known history of CAD with most recent stent placement a year ago in July. He also has a history of diabetes, hypertension, hyperlipidemia and obesity. He presented to the hospital with symptoms of bilateral lower extremity swelling and redness. This is apparently been progressively getting worse over some time now. His daughter recommended the patient come to the emergency room for further evaluation. According to the patient other than the edema he's been feeling quite well. He denies symptoms of shortness of breath, orthopnea, chest discomfort, PND, palpitations or dizziness. Upon review of monitor strips patient has been noted to have some Cami Cardia and sinus process during times of sleep which is very likely secondary to sleep apnea. During waking hours patient does not have evidence of pauses. Chest x-ray on admission did not reveal any acute process. An echocardiogram with Doppler was done that revealed an ejection fraction of 50-55 % with severe aortic stenosis. He was given some doses of IV Lasix and has been on Lasix 40 mg by mouth twice a day. He feels his edema has improved. Bilateral legs are wrapped. His weight is stable. Objective - Vital Signs Vital signs: Vital Signs Temp 97.5 F L 10/08/17 08:00 Pulse 85 10/08/17 08:00 Resp 20 10/08/17 08:00 BP 138/78 10/08/17 08:00 Pulse Ox 98 10/08/17 08:00 Intake & Output 10/07/17 10/08/17 10/08/17 18:59 06:59 18:59 Intake Total 1122 240 Output Total 950 1950 Balance 172 -1950 240 Weight 150.2 kg Intake: Oral 1122 240 Output: Urine 950 1950 Uretheral (Dasilva) 250 Other: Voiding Method Indwelling Catheter Indwelling Catheter Indwelling Catheter # Bowel Movements 1 - Exam PHYSICAL EXAMINATION: HEENT: [Head is atraumatic, normocephalic. Pupils equal, round. Neck is supple. There is no elevated jugular venous pressure.] HEART EXAMINATION: [Heart sounds regular, S1 and S2 with a systolic ejection murmur.] CHEST EXAMINATION:[ Lungs reveal diminished air entry bilaterally. No chest wall tenderness is noted on palpation or with deep breathing.] ABDOMEN: [ Soft, obese, nontender. Bowel sounds are heard. No organomegaly noted ]. EXTREMITIES:[ 1 + peripheral pulses with evidence of 2+ peripheral edema and no calf tenderness noted. Bilateral lower extremities wrapped]. NEUROLOGIC [patient is awake, alert and oriented x3.] . - Labs CBC & Chem 7: 10/08/17 05:49 10/08/17 05:49 Labs: Abnormal Lab Results - Last 24 Hours (Table) 10/07/17 10/07/17 10/07/17 Range/Units 11:44 16:30 21:01 RBC (4.30-5.90) m/uL Hgb (13.0-17.5) gm/dL Hct (39.0-53.0) % BUN (9-20) mg/dL Glucose (74-99) mg/dL POC Glucose (mg/dL) 181 H 218 H 172 H (75-99) mg/dL 10/08/17 10/08/17 10/08/17 Range/Units 05:49 05:49 06:13 RBC 4.23 L (4.30-5.90) m/uL Hgb 11.7 L (13.0-17.5) gm/dL Hct 35.2 L (39.0-53.0) % BUN 47 H (9-20) mg/dL Glucose 143 H (74-99) mg/dL POC Glucose (mg/dL) 157 H (75-99) mg/dL Microbiology - Last 24 Hours (Table) 10/04/17 16:23 Gram Stain - Preliminary Leg - Left Wound Culture - Preliminary Pseudomonas fluorescens/putida Enterococcus faecalis Gram Neg Bacilli Assessment and Plan Assessment: #1 bilateral lower extremity edema with evidence of cellulitis #2 known history of CAD with prior stent placements #3 chronic congestive heart failure with preserved LV systolic function #4 severe aortic stenosis #5 hypertension #6 diabetes #7 obesity Plan: From plant guard perspective, medications were reviewed and will continue the same. We do recommend sleep apnea evaluation as an outpatient. He'll follow up as an outpatient with Dr. Hendricks. DIP DYER note has been reviewed, I agree with a documented findings and plan of care. Patient was seen and examined.
== END 2017-10-08 16:19 | disposition home or self-care (01) | DRG 602 ==
LOC: EC 13:22 → 6SEL 18:46
PROVIDERS: ADMIT Internal Medicine; ATTEND Internal Medicine
DX: L03.115 Cellulitis of right lower limb (principal); I50.43 Acute on chronic combined systolic (congestive) and diastolic (congestive) heart failure; Z68.42 Body mass index [BMI] 45.0-49.9, adult; L97.309 Non-pressure chronic ulcer of unspecified ankle with unspecified severity; I69.354 Hemiplegia and hemiparesis following cerebral infarction affecting left non-dominant side; I69.351 Hemiplegia and hemiparesis following cerebral infarction affecting right dominant side; L03.116 Cellulitis of left lower limb; I11.0 Hypertensive heart disease with heart failure; E11.42 Type 2 diabetes mellitus with diabetic polyneuropathy; E11.622 Type 2 diabetes mellitus with other skin ulcer; E66.9 Obesity, unspecified; E78.5 Hyperlipidemia, unspecified; G47.30 Sleep apnea, unspecified; H40.9 Unspecified glaucoma; H91.90 Unspecified hearing loss, unspecified ear; I25.10 Atherosclerotic heart disease of native coronary artery without angina pectoris; I25.2 Old myocardial infarction; I25.5 Ischemic cardiomyopathy; I35.0 Nonrheumatic aortic (valve) stenosis; K21.9 Gastro-esophageal reflux disease without esophagitis; N40.0 Benign prostatic hyperplasia without lower urinary tract symptoms; Z79.82 Long term (current) use of aspirin; Z79.899 Other long term (current) drug therapy; Z80.1 Family history of malignant neoplasm of trachea, bronchus and lung; Z82.49 Family history of ischemic heart disease and other diseases of the circulatory system; Z87.891 Personal history of nicotine dependence; Z95.5 Presence of coronary angioplasty implant and graft; Z99.3 Dependence on wheelchair; Z90.49 Acquired absence of other specified parts of digestive tract; Z96.653 Presence of artificial knee joint, bilateral; Z79.84 Long term (current) use of oral hypoglycemic drugs; Z79.02 Long term (current) use of antithrombotics/antiplatelets; Z60.2 Problems related to living alone; B96.5 Pseudomonas (aeruginosa) (mallei) (pseudomallei) as the cause of diseases classified elsewhere; B95.2 Enterococcus as the cause of diseases classified elsewhere
CPT/HCPCS: 36415; 51702; 71046; 80048; 80053; 83735; 83880; 84100; 84484; 85025; 87070; 87077; 87186; 87205; 93005; 93306; 96365; 96366; 96372; 96375; 96376; 99285